=== PATIENT | male | born 1960 | race Caucasian/White ===

== ENCOUNTER → 2023-11-23 12:21 | Outpatient (REF) | payer OTHER, SELFPAY | LOC: REG 12:21 | PROVIDERS: ATTENDING PHYSICIAN Student in an Organized Health Care Education/Training Program | DX: M54.50 Low back pain, unspecified (principal) | CPT/HCPCS: 72110 ==

== ENCOUNTER 2024-01-27 14:41 | Outpatient (RCR) | payer OTHER, SELFPAY | END 2024-01-27 23:59 | disposition home or self-care (01) | LOC: RPT 14:41 | PROVIDERS: ATTENDING PHYSICIAN Pain Medicine Interventional Pain Medicine | DX: M54.16 Radiculopathy, lumbar region (principal); Z73.6 Limitation of activities due to disability | CPT/HCPCS: 97110; 97112; 97162 ==

== ENCOUNTER 2024-02-10 15:33 | Outpatient (RCR) | payer BC, SELFPAY | END 2024-02-10 23:59 | disposition home or self-care (01) | LOC: RPT 15:33 | PROVIDERS: ATTENDING PHYSICIAN Pain Medicine Interventional Pain Medicine | DX: M54.16 Radiculopathy, lumbar region (principal); Z73.6 Limitation of activities due to disability | CPT/HCPCS: 97110 ==

== ENCOUNTER → 2024-07-05 16:20 | Outpatient (REF) | payer BC, SELFPAY ==
[2024-07-05 17:20] LABS: Blood Urea Nitrogen 24 mg/dl (9-20); Calcium 9.3 mg/dl (8.4-10.2); Carbon Dioxide 21 mmol/L (22-30); Chloride 104 mmol/L (98-107); Glucose 99 mg/dl (70-99); Potassium 4.7 mmol/L (3.5-5.1); Sodium 136 mmol/L (135-145); eGFR > 60.00
== END ==
LOC: REG 16:20
PROVIDERS: ATTENDING PHYSICIAN Student in an Organized Health Care Education/Training Program
DX: Z13.228 Encounter for screening for other metabolic disorders (principal)
CPT/HCPCS: 36415; 80048

== ENCOUNTER → 2024-07-07 16:54 | Outpatient (REF) | payer BC, SELFPAY | LOC: RAD 16:54 | PROVIDERS: ATTENDING PHYSICIAN Student in an Organized Health Care Education/Training Program | DX: R93.89 Abnormal findings on diagnostic imaging of other specified body structures (principal) | CPT/HCPCS: 71260; Q9967 ==

== ENCOUNTER → 2024-07-20 15:36 | Outpatient (REF) | payer BC, SELFPAY | LOC: HWRCS 15:36 | PROVIDERS: ATTENDING PHYSICIAN Nuclear Medicine Nuclear Cardiology; FAMILY PHYSICIAN Nurse Practitioner Adult Health | DX: I25.10 Atherosclerotic heart disease of native coronary artery without angina pectoris (principal) | CPT/HCPCS: 93306 ==

== ENCOUNTER 2024-07-24 06:34 | Day surgery (SDC) | payer BC, SELFPAY ==
[2024-07-12 08:58] LABS: Hematocrit 41.2 % (39.0-52.0); Hemoglobin 13.8 g/dL (13.0-18.0); Mean Corp Hgb Conc. 33.5 g/dL (33.0-37.0); Mean Corpuscular Hgb 30.6 pg (27.0-31.0); Mean Corpuscular Volume 91.4 fL (80.0-94.0); Platelet Count 377 10^3/uL (130-400); Red Blood Cell Count 4.51 10^6/uL (4.70-6.10); Red Cell Dist. Width 12.2 % (11.5-14.5); White Blood Cell Count 8.9 10^3/uL (4.8-10.8)
[2024-07-12 09:27] LABS: INR 0.94; PT 13.1 Sec (11.4-14.6)
[2024-07-12 09:28] LABS: APTT 32.1 Sec (23.4-35.0)
[2024-07-12 14:16] VITALS: BMI 31.3
[2024-07-24] VITALS (9 sets, daily range): BP systolic 119–143; BP diastolic 58–67; BMI 31.2
== END 2024-07-24 11:30 | disposition home or self-care (01) ==
LOC: GI 06:34
PROVIDERS: ATTENDING PHYSICIAN Internal Medicine Critical Care Medicine; FAMILY PHYSICIAN Student in an Organized Health Care Education/Training Program
DX: C34.31 Malignant neoplasm of lower lobe, right bronchus or lung (principal); R05.3 Chronic cough; R91.8 Other nonspecific abnormal finding of lung field; R59.0 Localized enlarged lymph nodes
CPT/HCPCS: 31629; 31628; 31624; 31623; 31654; 31627; 31652; 88173; 88305; 36415; 71045; 76000; 81459; 85027; 85610; 85730; 87070; 87102; 87116; 87205; 88112; 88333; 88341; 88342; 94640; C1887

== ENCOUNTER → 2024-08-07 08:29 | Outpatient (REF) | payer BC, SELFPAY | LOC: PET 08:29 | PROVIDERS: ATTENDING PHYSICIAN Internal Medicine Critical Care Medicine | DX: R91.8 Other nonspecific abnormal finding of lung field (principal) | CPT/HCPCS: 78815; A9552 ==

== ENCOUNTER → 2024-08-15 08:33 | Outpatient (REF) | payer BC, SELFPAY ==
[2024-08-15 09:05] VITALS: BP 133/66; BP_SYST 84
[2024-08-15] MEDS: VANCOCIN 530 MG IV (09:29)
[2024-08-15 09:39] VITALS: BMI 32.0
[2024-08-15 09:56] LABS: Hematocrit 43.1 % (39.0-52.0); Hemoglobin 14.5 g/dL (13.0-18.0); Mean Corp Hgb Conc. 33.6 g/dL (33.0-37.0); Mean Platelet Volume 8.8 fL (7.4-10.4); Platelet Count 303 10^3/uL (130-400); Red Blood Cell Count 4.84 10^6/uL (4.70-6.10); Red Cell Dist. Width 12.3 % (11.5-14.5); White Blood Cell Count 8.3 10^3/uL (4.8-10.8)
[2024-08-15 10:48] LABS: ALT (SGPT) 29 U/L (0-50); AST (SGOT) 33 U/L (17-59); Albumin 3.9 g/dl (3.5-5.0); Alkaline Phosphatase 127 U/L (38-126); Blood Urea Nitrogen 14 mg/dl (9-20); Calcium 9.6 mg/dl (8.4-10.2); Carbon Dioxide 26 mmol/L (22-30); Chloride 104 mmol/L (98-107); Estimated Creatinine Clearance > 125 ml/min; Glucose 111 mg/dl (70-99); Potassium 4.7 mmol/L (3.5-5.1); Sodium 139 mmol/L (135-145); Total Bilirubin 0.7 mg/dl (0.2-1.3); Total Protein 6.6 g/dl (6.3-8.2); eGFR > 60.00
[2024-08-15 10:50] VITALS: BP 125/90
[2024-08-15 11:15] LABS: % Basophils 0.7 % (0-2); % Eosinophils 4.8 % (0-6); % Immature Granulocytes 0.4 % (0-0.5); % Lymphocytes 21.7 % (20.5-51.1); % Monocytes 7.2 % (1.7-9.3); % Neutrophils 65.2 % (42.2-75.2); Absolute Basophils 0.1 10^3/uL (0-0.2); Absolute Eosinophils 0.4 10^3/uL (0-0.7); Absolute Lymphocytes 1.8 10^3/uL (1.2-3.4); Absolute Monocytes 0.6 10^3/uL (0.1-0.6); Absolute Neutrophils 5.4 10^3/uL (1.4-6.5); Nucleated Red Blood Cells % 0 % (-)
== END ==
LOC: RADI 08:33
PROVIDERS: ATTENDING PHYSICIAN Internal Medicine Hematology & Oncology; FAMILY PHYSICIAN Student in an Organized Health Care Education/Training Program
DX: C34.31 Malignant neoplasm of lower lobe, right bronchus or lung (principal)
CPT/HCPCS: 36415; 36561; 76937; 77001; 80053; 85025; 99152; 99153; C1788

== ENCOUNTER → 2024-08-17 17:51 | Outpatient (REF) | payer BC, SELFPAY | LOC: MRI 17:51 | PROVIDERS: ATTENDING PHYSICIAN Internal Medicine Hematology & Oncology; FAMILY PHYSICIAN Student in an Organized Health Care Education/Training Program | DX: C34.31 Malignant neoplasm of lower lobe, right bronchus or lung (principal) | CPT/HCPCS: 70553; 76014; A9575 ==

== ENCOUNTER → 2024-08-24 11:36 | Outpatient (REF) | payer BC, SELFPAY ==
[2024-08-24 12:39] LABS: Hemoglobin 13.9 g/dL (13.0-18.0); Mean Corp Hgb Conc. 33.1 g/dL (33.0-37.0); Mean Corpuscular Hgb 29.8 pg (27.0-31.0); Mean Corpuscular Volume 90.1 fL (80.0-94.0); Platelet Count 186 10^3/uL (130-400); Red Blood Cell Count 4.66 10^6/uL (4.70-6.10); White Blood Cell Count 13.6 10^3/uL (4.8-10.8)
[2024-08-24 13:09] LABS: % Basophils 0.1 % (0-2); % Eosinophils 2.1 % (0-6); % Immature Granulocytes 0.1 % (0-0.5); % Lymphocytes 14.5 % (20.5-51.1); % Monocytes 8.9 % (1.7-9.3); % Neutrophils 74.3 % (42.2-75.2); Absolute Eosinophils 0.3 10^3/uL (0-0.7); Absolute Monocytes 1.2 10^3/uL (0.1-0.6); Absolute Neutrophils 10.1 10^3/uL (1.4-6.5); Nucleated Red Blood Cells % 0 % (-)
== END ==
LOC: REG 11:36
PROVIDERS: ATTENDING PHYSICIAN Internal Medicine Hematology & Oncology
DX: C34.31 Malignant neoplasm of lower lobe, right bronchus or lung (principal)
CPT/HCPCS: 36415; 85025

== ENCOUNTER → 2024-09-14 15:10 | Outpatient (REF) | payer BC, SELFPAY ==
[2024-09-14 16:06] LABS: % Basophils 0.7 % (0-2); % Immature Granulocytes 0.3 % (0-0.5); % Lymphocytes 10.4 % (20.5-51.1); % Monocytes 3.4 % (1.7-9.3); % Neutrophils 85.2 % (42.2-75.2); Absolute Basophils 0.1 10^3/uL (0-0.2); Absolute Lymphocytes 1.1 10^3/uL (1.2-3.4); Absolute Monocytes 0.4 10^3/uL (0.1-0.6); Absolute Neutrophils 8.7 10^3/uL (1.4-6.5); Hemoglobin 13.4 g/dL (13.0-18.0); Mean Corp Hgb Conc. 33.5 g/dL (33.0-37.0); Mean Corpuscular Hgb 29.8 pg (27.0-31.0); Mean Corpuscular Volume 88.9 fL (80.0-94.0); Mean Platelet Volume 9.2 fL (7.4-10.4); Nucleated Red Blood Cells % 0 % (-); Platelet Count 509 10^3/uL (130-400); Red Cell Dist. Width 13.6 % (11.5-14.5); White Blood Cell Count 10.2 10^3/uL (4.8-10.8)
[2024-09-14 16:19] LABS: ALT (SGPT) 39 U/L (0-50); AST (SGOT) 36 U/L (17-59); Albumin 4.4 g/dl (3.5-5.0); Alkaline Phosphatase 141 U/L (38-126); Blood Urea Nitrogen 17 mg/dl (9-20); Calcium 9.7 mg/dl (8.4-10.2); Carbon Dioxide 24 mmol/L (22-30); Chloride 106 mmol/L (98-107); Glucose 148 mg/dl (70-99); Potassium 4.8 mmol/L (3.5-5.1); Sodium 141 mmol/L (135-145); Total Bilirubin 0.4 mg/dl (0.2-1.3); eGFR > 60.00
== END ==
LOC: REG 15:10
PROVIDERS: ATTENDING PHYSICIAN Internal Medicine Hematology & Oncology
DX: C34.31 Malignant neoplasm of lower lobe, right bronchus or lung (principal)
CPT/HCPCS: 36415; 80053; 85025

== ENCOUNTER → 2024-09-26 11:00 | Outpatient (REF) | payer BC, SELFPAY ==
[2024-09-26 12:08] LABS: % Basophils 0.5 % (0-2); % Eosinophils 1.3 % (0-6); % Immature Granulocytes 1.1 % (0-0.5); % Lymphocytes 10.7 % (20.5-51.1); % Monocytes 8.3 % (1.7-9.3); % Neutrophils 78.1 % (42.2-75.2); Absolute Basophils 0.1 10^3/uL (0-0.2); Absolute Eosinophils 0.3 10^3/uL (0-0.7); Absolute Immature Granulocytes 0.2 10^3/uL (0-0.05); Absolute Lymphocytes 2.1 10^3/uL (1.2-3.4); Absolute Monocytes 1.7 10^3/uL (0.1-0.6); Absolute Neutrophils 15.5 10^3/uL (1.4-6.5); Hematocrit 41.2 % (39.0-52.0); Hemoglobin 13.3 g/dL (13.0-18.0); Mean Corp Hgb Conc. 32.3 g/dL (33.0-37.0); Mean Corpuscular Hgb 29.3 pg (27.0-31.0); Mean Corpuscular Volume 90.7 fL (80.0-94.0); Mean Platelet Volume 9.4 fL (7.4-10.4); Nucleated Red Blood Cells % 0 % (-); Platelet Count 149 10^3/uL (130-400); Red Blood Cell Count 4.54 10^6/uL (4.70-6.10); Red Cell Dist. Width 14.6 % (11.5-14.5); White Blood Cell Count 19.8 10^3/uL (4.8-10.8)
[2024-09-26 12:28] LABS: Urine Albumin Negative (Neg - Trace); Urine Bilirubin Negative (Negative); Urine Character Clear (Clear); Urine Color Yellow; Urine Glucose Negative (Negative); Urine Ketone Negative (Negative); Urine Leukocyte Negative (Negative); Urine Nitrite Negative (Negative); Urine Occult Blood 1+ (Negative); Urine Specific Gravity 1.015 (<1.030); Urine Urobilinogen Negative (Neg - 1+)
[2024-09-26 12:36] LABS: ALT (SGPT) 38 U/L (0-50); AST (SGOT) 27 U/L (17-59); Albumin 4.2 g/dl (3.5-5.0); Alkaline Phosphatase 172 U/L (38-126); Blood Urea Nitrogen 13 mg/dl (9-20); Calcium 9.3 mg/dl (8.4-10.2); Carbon Dioxide 26 mmol/L (22-30); Chloride 103 mmol/L (98-107); Glucose 102 mg/dl (70-99); Potassium 4.7 mmol/L (3.5-5.1); Sodium 137 mmol/L (135-145); Total Protein 6.6 g/dl (6.3-8.2); eGFR > 60.00
[2024-09-26 14:00] LABS: Urine Mucus Few; Urine Squamous Cell 0-2 /LPF (Few)
[2024-09-26 14:01] LABS: Urine Red Blood Cell 0-2 /HPF (0-2); Urine White Cell 0-2 /HPF (0-5)
== END ==
LOC: REG 11:00
PROVIDERS: ATTENDING PHYSICIAN Nurse Practitioner Primary Care; FAMILY PHYSICIAN Student in an Organized Health Care Education/Training Program
DX: C34.31 Malignant neoplasm of lower lobe, right bronchus or lung (principal)
CPT/HCPCS: 36415; 71046; 80053; 81003; 81015; 85025; 87086

== ENCOUNTER → 2024-10-05 06:38 | Outpatient (REF) | payer BC, SELFPAY ==
[2024-10-05 07:14] LABS: % Basophils 1.3 % (0-2); % Eosinophils 3.2 % (0-6); % Immature Granulocytes 0.9 % (0-0.5); % Lymphocytes 20.2 % (20.5-51.1); % Monocytes 8.1 % (1.7-9.3); % Neutrophils 66.3 % (42.2-75.2); Absolute Basophils 0.1 10^3/uL (0-0.2); Absolute Eosinophils 0.3 10^3/uL (0-0.7); Absolute Immature Granulocytes 0.1 10^3/uL (0-0.05); Absolute Lymphocytes 1.6 10^3/uL (1.2-3.4); Absolute Monocytes 0.6 10^3/uL (0.1-0.6); Absolute Neutrophils 5.2 10^3/uL (1.4-6.5); Hematocrit 38.9 % (39.0-52.0); Hemoglobin 12.9 g/dL (13.0-18.0); Mean Corp Hgb Conc. 33.2 g/dL (33.0-37.0); Mean Corpuscular Hgb 29.7 pg (27.0-31.0); Mean Corpuscular Volume 89.6 fL (80.0-94.0); Mean Platelet Volume 8.7 fL (7.4-10.4); Nucleated Red Blood Cells % 0 % (-); Platelet Count 386 10^3/uL (130-400); Red Blood Cell Count 4.34 10^6/uL (4.70-6.10); Red Cell Dist. Width 14.6 % (11.5-14.5); White Blood Cell Count 7.9 10^3/uL (4.8-10.8)
[2024-10-05 07:55] LABS: Free T4 0.93 ng/dl (0.78-2.19)
[2024-10-05 07:56] LABS: ALT (SGPT) 25 U/L (0-50); AST (SGOT) 25 U/L (17-59); Albumin 3.9 g/dl (3.5-5.0); Alkaline Phosphatase 122 U/L (38-126); Blood Urea Nitrogen 10 mg/dl (9-20); Calcium 9.1 mg/dl (8.4-10.2); Carbon Dioxide 23 mmol/L (22-30); Chloride 111 mmol/L (98-107); Glucose 123 mg/dl (70-99); Potassium 4.3 mmol/L (3.5-5.1); Sodium 143 mmol/L (135-145); Total Bilirubin 0.3 mg/dl (0.2-1.3); Total Protein 6.5 g/dl (6.3-8.2); eGFR > 60.00
[2024-10-05 08:09] LABS: TSH 1.15 uIU/ml (0.47-4.68)
[2024-10-07 02:40] LABS: Total T3 (Sendout) 115 ng/dL (80-200)
== END ==
LOC: REG 06:38
PROVIDERS: ATTENDING PHYSICIAN Internal Medicine Hematology & Oncology; FAMILY PHYSICIAN Student in an Organized Health Care Education/Training Program
DX: C34.31 Malignant neoplasm of lower lobe, right bronchus or lung (principal)
CPT/HCPCS: 36415; 80053; 84439; 84443; 84480; 85025

== ENCOUNTER → 2024-10-26 06:35 | Outpatient (REF) | payer BC, SELFPAY ==
[2024-10-26 07:37] LABS: % Basophils 0.9 % (0-2); % Eosinophils 3.2 % (0-6); % Immature Granulocytes 1.4 % (0-0.5); % Neutrophils 69.5 % (42.2-75.2); Absolute Basophils 0.1 10^3/uL (0-0.2); Absolute Eosinophils 0.3 10^3/uL (0-0.7); Absolute Immature Granulocytes 0.1 10^3/uL (0-0.05); Absolute Lymphocytes 1.6 10^3/uL (1.2-3.4); Absolute Monocytes 0.8 10^3/uL (0.1-0.6); Absolute Neutrophils 6.6 10^3/uL (1.4-6.5); Hemoglobin 13.2 g/dL (13.0-18.0); Mean Corpuscular Hgb 29.7 pg (27.0-31.0); Mean Corpuscular Volume 89.9 fL (80.0-94.0); Mean Platelet Volume 9.2 fL (7.4-10.4); Nucleated Red Blood Cells % 0 % (-); Platelet Count 289 10^3/uL (130-400); Red Blood Cell Count 4.45 10^6/uL (4.70-6.10); Red Cell Dist. Width 16.1 % (11.5-14.5); White Blood Cell Count 9.6 10^3/uL (4.8-10.8)
[2024-10-26 08:00] LABS: ALT (SGPT) 26 U/L (0-50); AST (SGOT) 28 U/L (17-59); Albumin 4.1 g/dl (3.5-5.0); Alkaline Phosphatase 127 U/L (38-126); Blood Urea Nitrogen 13 mg/dl (9-20); Calcium 9.4 mg/dl (8.4-10.2); Carbon Dioxide 30 mmol/L (22-30); Chloride 106 mmol/L (98-107); Glucose 120 mg/dl (70-99); Potassium 4.8 mmol/L (3.5-5.1); Sodium 142 mmol/L (135-145); Total Bilirubin 0.5 mg/dl (0.2-1.3); Total Protein 6.6 g/dl (6.3-8.2); eGFR > 60.00
[2024-10-26 08:27] LABS: TSH Reflex To Free T4 0.07 uIU/ml (0.47-4.68)
[2024-10-26 08:57] LABS: Free T4 1.81 ng/dl (0.78-2.19)
== END ==
LOC: REG 06:35
PROVIDERS: ATTENDING PHYSICIAN Nurse Practitioner Adult Health; FAMILY PHYSICIAN Student in an Organized Health Care Education/Training Program
DX: C34.31 Malignant neoplasm of lower lobe, right bronchus or lung (principal)
CPT/HCPCS: 36415; 80053; 84439; 84443; 85025

== ENCOUNTER → 2024-11-15 12:27 | Outpatient (REF) | payer BC, MEDICARE, SELFPAY | LOC: PET 12:27 | PROVIDERS: ATTENDING PHYSICIAN Nurse Practitioner Adult Health | DX: C34.31 Malignant neoplasm of lower lobe, right bronchus or lung (principal) | CPT/HCPCS: 78815; A9552 ==

== ENCOUNTER → 2024-11-16 15:31 | Outpatient (REF) | payer MEDICARE, OTHER, SELFPAY ==
[2024-11-16 16:51] LABS: Hematocrit 36.8 % (39.0-52.0); Hemoglobin 12.3 g/dL (13.0-18.0); Mean Corp Hgb Conc. 33.4 g/dL (33.0-37.0); Mean Corpuscular Volume 91.5 fL (80.0-94.0); Nucleated Red Blood Cells % 0 % (-); Platelet Count 258 10^3/uL (130-400); Red Cell Dist. Width 16.5 % (11.5-14.5)
[2024-11-16 17:14] LABS: ALT (SGPT) 50 U/L (0-50); AST (SGOT) 45 U/L (17-59); Albumin 4.3 g/dl (3.5-5.0); Alkaline Phosphatase 121 U/L (38-126); Blood Urea Nitrogen 18 mg/dl (9-20); Calcium 8.9 mg/dl (8.4-10.2); Carbon Dioxide 27 mmol/L (22-30); Chloride 105 mmol/L (98-107); Glucose 98 mg/dl (70-99); Potassium 4.7 mmol/L (3.5-5.1); Sodium 139 mmol/L (135-145); Total Protein 6.5 g/dl (6.3-8.2); eGFR > 60.00
[2024-11-16 17:44] LABS: TSH < 0.02 uIU/ml (0.47-4.68)
[2024-11-19 17:44] LABS: Total T3 (Sendout) 213 ng/dL (80-200)
== END ==
LOC: REG 15:31
PROVIDERS: ATTENDING PHYSICIAN Internal Medicine Hematology & Oncology; FAMILY PHYSICIAN Student in an Organized Health Care Education/Training Program
DX: C34.31 Malignant neoplasm of lower lobe, right bronchus or lung (principal); Z79.899 Other long term (current) drug therapy
CPT/HCPCS: 36415; 80053; 84439; 84443; 84480; 85025

== ENCOUNTER → 2024-11-22 07:36 | Outpatient (REF) | payer MEDICARE, OTHER, SELFPAY | LOC: RCS 07:36 | PROVIDERS: ATTENDING PHYSICIAN Internal Medicine Cardiovascular Disease; FAMILY PHYSICIAN Student in an Organized Health Care Education/Training Program | DX: I25.10 Atherosclerotic heart disease of native coronary artery without angina pectoris (principal) | CPT/HCPCS: 78452; 93017; A9500 ==

== ENCOUNTER → 2024-12-05 10:03 | Outpatient (REF) | payer MEDICARE, OTHER, SELFPAY ==
[2024-12-05 11:48] LABS: TSH 0.18 uIU/ml (0.47-4.68)
[2024-12-07 00:45] LABS: Total T3 (Sendout) 96 ng/dL (80-200)
== END ==
LOC: REG 10:03
PROVIDERS: ATTENDING PHYSICIAN Internal Medicine Hematology & Oncology; FAMILY PHYSICIAN Student in an Organized Health Care Education/Training Program
DX: R53.82 Chronic fatigue, unspecified (principal)
CPT/HCPCS: 36415; 84439; 84443; 84480

== ENCOUNTER 2024-12-18 04:56 | Inpatient (IN) | payer MEDICARE, OTHER, SELFPAY ==
[2024-12-05 08:50] VITALS: BMI 31.4
[2024-12-05 09:02] LABS: Hematocrit 40.7 % (39.0-52.0); Hemoglobin 14.0 g/dL (13.0-18.0); Mean Corp Hgb Conc. 34.4 g/dL (33.0-37.0); Mean Corpuscular Volume 91.9 fL (80.0-94.0); Nucleated Red Blood Cells % 0 % (-); Platelet Count 200 10^3/uL (130-400); Red Cell Dist. Width 14.6 % (11.5-14.5)
[2024-12-05 09:02] LABS: Urine Character Clear (Clear)
[2024-12-05 09:15] LABS: INR 0.96; PT 13.3 Sec (11.4-14.6)
[2024-12-05 09:38] LABS: ALT (SGPT) 24 U/L (0-50); AST (SGOT) 29 U/L (17-59); Albumin 4.2 g/dl (3.5-5.0); Alkaline Phosphatase 102 U/L (38-126); Blood Urea Nitrogen 12 mg/dl (9-20); Calcium 9.3 mg/dl (8.4-10.2); Carbon Dioxide 25 mmol/L (22-30); Chloride 108 mmol/L (98-107); Estimated Creatinine Clearance 110 ml/min; Glucose 130 mg/dl (70-99); Potassium 4.0 mmol/L (3.5-5.1); Sodium 140 mmol/L (135-145); Total Protein 6.4 g/dl (6.3-8.2); eGFR > 60.00
[2024-12-05 09:43] LABS: Urine Red Blood Cell 0-2 /HPF (0-2); Urine White Cell 0-2 /HPF (0-5)
--- NOTE | 2024-12-05 10:03 | CM ---
spoke to pt in PAT's. we disucssed preop Lung surgery including lifting and driving restictions, he is prev indep, lives with his in a 1 story home with 1 step to enter. he denies any dme's. he is agreeable to a f/u appt with the ct
transitional care nurse after dc. he has the lung surgery book, soap and instructions. plan is for RLL lobectomy 12/18. cm role explained and all questions answered.
[2024-12-05 10:16] LABS: Glycohemoglobin (HgbA1c) 5.6 % (4.0-5.6)
[2024-12-18] VITALS (15 sets, daily range): BP systolic 106–156; BP diastolic 53–97; BMI 31.4
--- NOTE | 2024-12-18 05:46 | PTCARENOTE ---
Patient arive to CVICU pre op questions and admission data collected and prep completed. CHG bath done, Last food or drink 1900 12/17/2004. Labs drawn, prepped and cliped.
--- NOTE | 2024-12-18 06:18 | W.CVOR.SURPR ---
CVOR Surgeon Immed Pre Op
-
I have examined this patient prior to performance of the scheduled procedure.
The patient's condition is unchanged from the time of the dictated/written History and
Physical and the patient is able to undergo the scheduled procedure.
RATS RLL + LN Dissection
[2024-12-18] MEDS: VANCOCIN 530 MG IV (06:53)
[2024-12-18 07:26] LABS: Urine Character Clear (Clear)
[2024-12-18] MEDS: AZACTAM 2000 MG IV ×2 (07:35→12:48)
[2024-12-18 07:44] LABS: Urine Red Blood Cell 0-2 /HPF (0-2); Urine White Cell 0-2 /HPF (0-5)
--- NOTE | 2024-12-18 08:11 | CM ---
Reviewed chart. Mr. Rodriguez is in the operating room today. Prior to admission he resides with his spouse in a one story home with one step to enter. Prior to admission he was independent with ambulation and adls. He does not have any DME in the
home. He has a prescription plan. Medical work-up in progress. The discharge plan is to return home with his spouse and a home visit by the Transitional Care Nurse when medically stable.
--- NOTE | 2024-12-18 10:53 | W.PN.CT.SURG ---
CT Surgery Operative Note
-
THORACIC SURGERY OPERATIVE REPORT
Preoperative Diagnosis: Right lower lobe pulmonary adenocarcinoma, status post neoadjuvant chemoimmunotherapy
Postoperative Diagnosis: Same
Procedure(s) Performed:
1. Robotic assisted thoracic surgery [R ATS]
2. Right lower lobectomy
3. Radical lymph node dissection
4. Intercostal nerve block interspaces 4, 5, 6, 7, 8
Date of Surgery: 12/18/2024
Comorbidities:
1. Pulmonary adenocarcinoma status post neoadjuvant chemoimmunotherapy
2. Hyperlipidemia
3. History of myocardial infarction
4. Hypertension
5. Tobacco abuse
6. EtOH usage
Attending Surgeon: Rogelio Hastings MD, MS
Assistants: Mara Ryan PA-C (present and necessary to first cook, exchanging robotic instruments, retraction, suction, exposure, suture management, and wound closure under my direction)
Anesthesiology: Davonte Arguelles MD and Nino Ellis CRNA
Scrub and Circulating RNs: Lane Aleman RN, Christine Nazario RN
Anesthesia: Dual Lumen GETA
EBL: 150 cc
Products: None
Indication(s) for Procedures: This is a 64-year-old male who recently had pneumonia underwent a CT scan which demonstrated a 4 cm right lower lobe mass. He underwent biopsy which came back as primary pulmonary adenocarcinoma. Given the size of the
mass he was stage II [T2b, N0, presumed M0] and was started on neoadjuvant chemoimmunotherapy. He seemed to have a good response with decrease in size of the mass as well as FDG avidity. He was referred to me for consideration of resection post
neoadjuvant therapy.
Findings: There were no obvious intrathoracic metachronous lesions. The right lower lobe mass was located in the lateral posterior aspect in the superior segment of the right lower lobe. There was some adhesions between the fissures between the
right lower lobe and right upper lobe. His hilum was highly vascular as were his lymph nodes. Once the inferior pulmonary vein was dissected, and lymph nodes were harvested, I then dove into towards the hilum identifying the main basilar pulmonary
artery branch. I then the pulmonary tissue using a green load stapler towards the posterior aspect and use a vessel sealer along the anterior aspect between the right middle and right lower lobes. Small branches of pulmonary veins were
divided with the vessel sealer. The major pulmonary arterial branches feeding into the right lower lobe were identified and then divided using white load staplers. The vein leading to the right lower lobe was also divided using a white load
stapler. At this point I used the vessel sealer to dissect between the lung parenchyma tethering the right middle lobe and right lower lobes together. This freed up the bronchus to the right lower lobe. It was clamped and the test inflation was
performed demonstrating an unobstructed flow to the right upper and right middle lobes. It was then divided. Leak test was then performed by flooding the field and instillation of the remaining lobes. There is no obvious bubbling. Of note, the
tissue that was adherent between the right lower lobe mass the right upper lobe was divided using a vessel sealer with a margin.
Specimen(s):
Station 10, x 2 nodes
Station 11, x 3 nodes
Station 2/4, x 4 nodes
Station 7, x 4 nodes
Station 12 x 1
Right lower lobe lobe
Description of Procedure: The patient was taken to the operating room. Induction via general anesthesia with endotracheal intubation was performed and peripheral venous access and arterial monitoring were inserted. Their identity and procedure to be
performed were verified and they were positioned with the right side up on the operating table. The patient was then prepped and draped in a sterile fashion. A preoperative time-out was performed with all members of the team present. A Veress
needle was used to insufflate the chest after isolating the lung. An 8 mm port was placed in the midaxillary line at approximately the eighth intercostal space and confirmed to be intrathoracic without significant pulmonary injury. The chest was
surveyed for any evidence of metastatic disease. Patient tolerate insufflation without complication. 2 additional 12 mm trocars were placed on either side under camera guidance and a third 8 mm trocar was placed along the back. A 12 mm floor covering printer assistant
port was placed in the 11th intercostal space above the insertion of the diaphragm. An intercostal nerve block was performed at intercostal spaces 5 through 8.
The thoracic cavity was inspected for evidence of metastatic disease. None was observed. We started with mobilization of the inferior pulmonary ligament. We worked our way clockwise dissecting out the hilum and harvest any lymph nodes identified.
The pulmonary arteries and veins leading to the right lower lobe were identified and skeletonized. A vessel sealer was used to divide any minor venous branches. The major arterial and venous branches to the right lower lobe were sequentially
divided with a white load stapler. I clamped the bronchus and performed a test inflation which demonstrated unobstructed flow into the remaining right upper and right middle lobe. The specimen was displaced toward the apex while a chest tube was
inserted and placed laterally towards the apex. A bubble test was performed to identify any air leaks. CoSeal was used to reinforce the staple lines and hilum. The right lower was then placed into a specimen bag and extracted from the chest cavity.
After confirming hemostasis, the lung was fully inflated and all ports were removed. Incisions were closed in 3 layers including the fascia, dermal, and epidermis. Additional local anesthesia was injected into all incision sites. The skin wound
was cleansed and sealed with Dermabond glue.
All instrument, sponge, and needle counts were confirmed to be correct x 2 at the end of the operation. The patient was transferred to the cardiac intensive care unit extubated in critical but stable condition.
I, Dr. Rogelio Hastings, was present, scrubbed for, and performed all critical elements of this procedure.
Rogelio Hastings MD, MS
Cardiothoracic Surgeon
[facility]
This operative dictation was created using the youmag dictation system. Please excuse any grammatical, typographical, or 'sound alike' errors
[2024-12-18] MEDS: DILAUDID 0.5 MG IV (11:27)
--- NOTE | 2024-12-18 11:35 | CON.INTV ---
Consultation
Consultation Request
Date/Time Consultation Requested: 12/18/2024
Date/Time Consultation Performed: 12/18/2024
Reason for Consultation: Lung carcinoma
Medical History
-
Chief Complaint: Lung cancer
History of Present Illness:
Patient is a very pleasant 64-year-old gentleman with longstanding history of smoking who was noticed to have a right lower lobe mass earlier this year. In 07/2024 patient had a robotic bronchoscopy and EBUS performed and tissue diagnosis was
consistent with adenocarcinoma. Patient was diagnosed with stage II disease with plan for neoadjuvant chemotherapy. Patient has recently completed chemotherapy and is currently on Keytruda. He was subsequently evaluated by CT surgery service, and
was felt to be a good candidate for surgical resection. Patient had a PET scan performed a month ago which showed good response to the initial therapy and absence of extrathoracic disease. Patient today was brought to the OR and had right lower
lobectomy in addition to radical lymph node dissection. Postprocedure, patient was admitted to cardiovascular ICU and peoplesoft taleo manager consultation was requested for further input.
Past medical history. Hypertension, hyperlipidemia, coronary artery disease with history of PCI in 2012, history of alcoholism, longstanding history of smoking. Adenocarcinoma lung, diagnosed in 07/2024.
Surgical history. Cardiac catheterization, cataract surgery, shoulder surgery.
Family history. Father had asbestos related malignancy. History of head and neck cancer in a sibling.
Social history. [id number] smoking history, quit in 2012. Reported exposure to asbestos in the past. Currently drinks about 6 beers daily.
Allergies / Home Medications
Allergies
Allergy/AdvReac Type Severity Reaction Status Date / Time
Penicillins Allergy Rash Verified 12/01/24 15:10
Home Medications
�Medication �Instructions �Recorded �Confirmed �Last Taken �Type
aspirin 81 mg tablet,delayed 81 mg PO DAILY ##0 04/25/13 12/18/24 1 Day Ago Rx
release ~12/17/24
81
lisinopril 2.5 mg tablet 2.5 mg PO DAILY ##30 04/25/13 12/18/24 12/15/24 Rx
2.5 MG
rosuvastatin 40 mg tablet (Crestor) 40 mg PO DAILY 12/18/15 12/18/24 12/17/24 History
40
famotidine 10 mg tablet 10 mg PO DAILY 07/19/24 12/18/24 1 Day Ago History
~12/17/24
10 MG
metoprolol succinate 25 mg 25 mg PO DAILY 07/19/24 12/18/24 12/17/24 History
tablet,extended release 24 hr 25 MG
Keytruda 1 dose IV Q3W 12/01/24 12/18/24 12/01/24 History
1
folic acid 1 mg tablet 1 mg PO DAILY 12/01/24 12/18/24 1 Day Ago History
~12/17/24
1
Aleve 1 tab PO PRN PRN PAIN 12/18/24 12/18/24 12/09/24 History
220 mg
Review of Systems
-
Hematologic/Lymphatic: Other (Other than expected postop pain, all 14 systems reviewed and negative except as stated above in the history of present illness.)
Vitals / Labs / Diagnostic Testing
Vital Signs
Temp BP Pulse Ox
97.9 F 143/66 96
12/18/24 11:12 12/18/24 11:15 12/18/24 11:15
Lab Data
12/05/24 08:45
12/18/24 11:05
Diagnostic Testing:
Physical Exam
-
HEENT: Normocephalic
Cardiovascular: S1/S2
Respiratory: Clear and Other (Chest tube in place, serosanguineous drainage. Tidaling noted.)
GI: Soft
Neurology: Awake and Alert
Skin: Warm
General: Comfortable
Assessment
-
Patient with diagnosis of right lower lobe pulmonary adenocarcinoma, s/p RATS, right lower lobectomy and radical lymph node dissection with intercostal nerve block, POD # 0
Patient is off all pressors. Hemodynamically stable with a MAP of 82. Saturating 97% on 2 L. Chest tube right-sided in place with serosanguineous drainage.
Continue to wean oxygen as tolerated
Chest x-ray in the morning
Pain control
CXR with no obvious opacities/infiltrates, Chest tube in place
Maintain supplement oxygen as needed
Prior PFTs reviewed
Can add nebulizers if needed
Aspiration precautions
Encouraged incentive spirometry, OOB/ambulation/early mobility
Advance diet as tolerated per surgery service
Monitor critical I/O's
Post-op labs pending
Can transfuse if indicated for Hb <7, plt <50 in surgical patients
DVT prophylaxis including SCDs
Other medical diagnoses:
- Stage II RLL Adenocarcinoma. s/p Chemotherapy, currently on Keytruda, s/p Surgical resection today with LN dissection. Resume out patient follow up with Oncology and Pulmonary service
- h/o Smoking. 80 pack years, Quiet in 2012. PFT 07/2024. Normal spirometry with mildly reduced diffusion capacity, normal when corrected for alveolar volume. No indication for inhaler therapy
- Alcoholism, drink about 6 beers daily. Recommend addition of Thiamine, monitor for s/s of alcohol withdrawl.
- HTN, HLD
- CAD, h/o PCI of RCA in 2012.
Critical Care time 65 mins -- The patient is admitted for acute critical illness for the treatment of vital organ failure and/or prevention of further life-threatening conditions. Total care includes time spent in review of history, physical exam,
medications, hemodynamic/ventilator parameters, laboratory data, imaging and discussion with house staff, pharmacy, respiratory therapy, sales strategy manager, and nursing.
Data:
CXR 12/2024: Right sided chest tube, mild atelectasis.
PET-CT 11/2024: Positive response to treatment. Improving size and FDG uptake of the hypermetabolic lung cancer in the superior segment of the right lower lobe compared to the previous PET/CT from 08/07/2024.
Robotic Bronchoscopy and EBUS-TBNA 07/2024. RLL Pulmonary Adenocarcinoma, PD-L1 0%, 11R non-diagnostic. NGS +ve for EGFR, KRAS and ERBB2
PET-CT 07/2024: Hypermetabolic mass in the superior segment of the right lower lobe in keeping with the patient's known lung cancer. Low level uptake in the right hilum, indeterminate.
--- NOTE | 2024-12-18 13:02 | PTCARENOTE ---
received patient from pacu. drowsy but arousable. CT placed to water seal. CXR done bedside. 97% 2Lnc. diminished but clear. pulses palpable. PIVx2. L Radial [place]. zeroed. will cotninue to monitor
[2024-12-18] MEDS: FLEXERIL 5 MG PO (14:15)
[2024-12-18] MEDS: NEURONTIN 100 MG PO ×2 (15:47→21:42)
[2024-12-18] MEDS: TYLENOL 1000 MG PO ×2 (15:47→21:42)
--- NOTE | 2024-12-18 17:08 | PTCARENOTE ---
no change in assessment from prior. tolerating sips of clear and pills. see MAR for med dosing. will continue to monitor
[2024-12-18] MEDS: VANCOCIN 200 IV (19:15)
[2024-12-18] MEDS: SENOKOT 8.6 MG PO (20:18)
--- NOTE | 2024-12-18 21:00 | PTCARENOTE ---
Assumed care of pt from manuelmslita RN. Pt AAOx3. Resting in bed at this time. Pt is SR on the tele monitor. HR 60s. BP stable. Palpable pulses throughout. Pt on 2 L NC. POX 98-99%. Right lower lobe breath sounds absent. Diminished throughout. Right
pleural CTx1 to water seal. +1 airleak when pt coughs. Tidaling present. Output appropriate. Abdomen nontender. Hypoactive BS. Pt voiding w/o issue. Right lateral puncture sites approximated and SUBSTATION DESIGN DRAFTSPERSON. PIVx2 intact. Pt repositioned in bed. See
work-list for full nursing assessment and interventions. Call toribio within reach.
[2024-12-19] VITALS (9 sets, daily range): BP systolic 107–133; BP diastolic 57–98; BMI 31.2
--- NOTE | 2024-12-19 00:29 | PTCARENOTE ---
No acute changes in assessment. Pt is SR on the tele monitor. BP stable. 98% on [address] assessment unchanged. Tidaling present. All surgical sites stable. Pt repositioned in bed. Call toribio within reach.
[2024-12-19] MEDS: FLEXERIL 5 MG PO ×2 (01:51→12:04)
[2024-12-19 03:28] LABS: Hematocrit 38.1 % (39.0-52.0); Hemoglobin 13.1 g/dL (13.0-18.0); Mean Corp Hgb Conc. 34.4 g/dL (33.0-37.0); Mean Corpuscular Volume 90.5 fL (80.0-94.0); Platelet Count 232 10^3/uL (130-400); Red Cell Dist. Width 13.1 % (11.5-14.5)
[2024-12-19 04:05] LABS: Blood Urea Nitrogen 12 mg/dl (9-20); Calcium 8.7 mg/dl (8.4-10.2); Carbon Dioxide 27 mmol/L (22-30); Chloride 105 mmol/L (98-107); Estimated Creatinine Clearance > 125 ml/min; Glucose 135 mg/dl (70-99); Magnesium 2.5 mg/dl (1.6-2.3); Potassium 4.5 mmol/L (3.5-5.1); Sodium 138 mmol/L (135-145); eGFR > 60.00
--- NOTE | 2024-12-19 04:07 | PTCARENOTE ---
No change in assessment. Pt is SR on the tele monitor. Occasionally SB. HR mainly 60s. BP stable. 98% on 2 L NC. CTx1 assessment unchanged. To water seal. Labs drawn and sent. All surgical sites stable. Call toribio within reach.
--- NOTE | 2024-12-19 04:19 | W.PN.CT ---
Today's Communication / Plan
-
Plan:
-No major issues overnight
-Successfully extubated in the OR, 12/18/24
-Chest tube transitioned to water seal in CVICU, currently has air leak only with cough, drained 70/270
-CXR this AM shows improved right apical ptx, mild SQ emphysema, f/u official report
-Will consider clamping chest tube with f/u cxr and possible d/c of chest tube today if cxr without significant ptx or SQ emphysema
-Avoid NSAIDs for pain
-Encourage use of IS
-OOB into chair/Ambulate
-F/U pathology
-Home later today vs tomorrow
Assessment / Plan
-
Assessment:
-S/P Robotic assisted thoracic surgery [RATS]/ Right lower lobectomy/Radical lymph node dissection/Intercostal nerve block interspaces 4, 5, 6, 7, 8, by Dr. Hastings, 12/18/24, pod#1
1. Pulmonary adenocarcinoma status post neoadjuvant chemoimmunotherapy
2. Hyperlipidemia
3. History of myocardial infarction
4. Hypertension
5. Tobacco abuse
6. EtOH usage
-Acute postop small right apical ptx (stable)
-Acute postop atelectasis
Discussed patient care with: Nursing, Pharmacy and Care Team
Subjective
Procedure
S/P Robotic assisted thoracic surgery [RATS]/ Right lower lobectomy/Radical lymph node dissection/Intercostal nerve block interspaces 4, 5, 6, 7, 8, by Dr. Hastings, 12/18/24
-
Date of Service: December 19, 2024
Pt c/o mild incisional pain, otherwise feels well
Objective Data
-
Lab Results
12/19/24 03:21
12/19/24 03:21
PT 13.3 Sec (11.4-14.6) 12/05/24 08:45
INR 0.96 12/05/24 08:45
Vital Signs
Vital Signs
Temp Pulse Resp BP Pulse Ox
97.9 F 65 14 121/60 97
12/19/24 04:00 12/19/24 04:00 12/19/24 04:00 12/19/24 04:00 12/19/24 04:00
CT Intake/Output/Weight
12/18/24 12/18/24 12/19/24
06:59 18:59 06:59
Intake Total 200 / 200
Output Total 200 / 1760 1560 / 1760
Balance 0 / -1560 -1560 / -1560
SaO2: 95 (RA)
Physical Exam
-
General: Awake, Oriented and AOx3
Cardiovascular: Regular rate & rhythm and No Murmurs
Respiratory: Decreased Breath Sounds (on right, otherwise clear)
Incision: Clean, Dry, Intact and Dressing Intact
Extremities: No Edema
Data Reviewed
-
Lab Results: Results Reviewed
Medications: Active Meds Reviewed
Chest X-Ray: Report Reviewed and Image Reviewed
ECG: Report Reviewed and Image Reviewed
[2024-12-19] MEDS: TYLENOL 1000 MG PO (05:07)
[2024-12-19] MEDS: VANCOCIN 200 IV (06:27)
--- NOTE | 2024-12-19 07:45 | W.PN.PUL3 ---
Today's Communication / Plan
-
- Defer chest tube management to CT surgery service
- Will arrange outpatient follow-up with pulmonary clinic postdischarge
- Pulmonary service available as needed
Assessment
-
Patient is a very pleasant 64-year-old gentleman with longstanding history of smoking who was noticed to have a right lower lobe mass earlier this year. In 07/2024 patient had a robotic bronchoscopy and EBUS performed and tissue diagnosis was
consistent with adenocarcinoma. Patient was diagnosed with stage II disease with plan for neoadjuvant chemotherapy. Patient has recently completed chemotherapy and is currently on Keytruda. He was subsequently evaluated by CT surgery service, and
was felt to be a good candidate for surgical resection. Patient had a PET scan performed a month ago which showed good response to the initial therapy and absence of extrathoracic disease. Patient today was brought to the OR and had right lower
lobectomy in addition to radical lymph node dissection. Postprocedure, patient was admitted to cardiovascular ICU and extra hand consultation was requested for further input.
Patient with diagnosis of right lower lobe pulmonary adenocarcinoma, s/p RATS, right lower lobectomy and radical lymph node dissection with intercostal nerve block, POD # 1
Patient is off all pressors. Hemodynamically stable.. Saturating 97% on RA. Chest tube right-sided in place with serosanguineous drainage
Pain control
Maintain supplement oxygen as needed
Prior PFTs reviewed
Can add nebulizers if needed. No wheezing on exam.
Aspiration precautions
Encouraged incentive spirometry, OOB/ambulation/early mobility
Advance diet as tolerated per surgery service
Monitor critical I/O's
Post-op labs stable
Can transfuse if indicated for Hb <7, plt <50 in surgical patients
DVT prophylaxis, s.c. Heparin
Underlying medical diagnoses:
- Stage II RLL Adenocarcinoma. s/p Chemotherapy, currently on Keytruda, s/p Surgical resection 12/18, with LN dissection. Resume out patient follow up with Oncology and Pulmonary service
- h/o Smoking. 80 pack years, Quit in 2012. PFT 07/2024. Normal spirometry with mildly reduced diffusion capacity, normal when corrected for alveolar volume. No indication for inhaler therapy. No wheezing on exam
- Trace right apical Pneumothorax. Chest tube in place. Currently tolerating water seal well. Small volume intermittent air leak on forced expiration or coughing. Serial imaging, may consider clamping trial, will defer management to CT surgery
service.
- Alcoholism, drink about 6 beers daily. Recommend addition of Thiamine, monitor for s/s of alcohol withdrawl.
- HTN, HLD
- CAD, h/o PCI of RCA in 2012.
Total time spent on this consultation/encounter _45___ minutes which includes review of history, physical exam, medications, laboratory data, personal review of imaging, extensive review of outpatient records, discussion with care team and
respiratory therapy.
Data:
CXR 12/2024: There is a tiny faint right apical pneumothorax, having developed since prior examination.
CXR 12/2024: Right sided chest tube, mild atelectasis.
PET-CT 11/2024: Positive response to treatment. Improving size and FDG uptake of the hypermetabolic lung cancer in the superior segment of the right lower lobe compared to the previous PET/CT from 08/07/2024.
Robotic Bronchoscopy and EBUS-TBNA 07/2024. RLL Pulmonary Adenocarcinoma, PD-L1 0%, 11R non-diagnostic. NGS +ve for EGFR, KRAS and ERBB2
PET-CT 07/2024: Hypermetabolic mass in the superior segment of the right lower lobe in keeping with the patient's known lung cancer. Low level uptake in the right hilum, indeterminate.
Subjective Data
-
Date of Service:
Date of Service: December 19, 2024
Subjective:
Patient comfortably sitting in chair in no acute distress, has pleuritic discomfort at chest tube insertion site
Review of Systems
Genitourinary: Other (All 14 systems reviewed and negative except as stated above in the history of present illness.)
Objective Data
Data Reviewed
Vital Signs / I&O / Oxygen:
Vital Signs
Temp Pulse Resp BP Pulse Ox
97.9 F 71 14 133/98 97
12/19/24 04:00 12/19/24 06:30 12/19/24 06:15 12/19/24 06:00 12/19/24 06:15
Intake and Output
12/18/24 12/19/24 12/20/24
06:59 06:59 06:59
Intake Total 200 / 200
Output Total 2295 / 2295
Balance -2094 / -2094
SaO2 97
Nasal Cannula flow liters per 2
minute
Physical Exam
General: Comfortable
HEENT: Normocephalic
Cardiovascular: S1-S2
Respiratory: Clear and Non-Labored Respirations
GI: Soft and Non Distended
Neurology: Awake and Alert
Skin: Warm
Labs/Micro/Reports
Lab Data
12/19/24 03:21
12/19/24 03:21
[2024-12-19] MEDS: MIRALAX 17 GRAMS PO (09:07)
[2024-12-19] MEDS: LIDOCAINE 4% PATCH 1 PATCH TOPICAL (09:07)
[2024-12-19] MEDS: VITAMIN B1 100 MG PO (09:08)
[2024-12-19] MEDS: PEPCID 20 MG PO (09:08)
[2024-12-19] MEDS: SENOKOT 8.6 MG PO (09:08)
[2024-12-19] MEDS: ASPIR LOW (ENTERIC COATED) 81 MG PO (09:08)
[2024-12-19] MEDS: TOPROL XL 25 MG PO (09:08)
[2024-12-19] MEDS: CRESTOR 40 MG PO (09:08)
[2024-12-19] MEDS: NEURONTIN 100 MG PO (09:08)
[2024-12-19] MEDS: ZESTRIL 2.5 MG PO (09:08)
[2024-12-19] MEDS: FOLVITE 1 MG PO (09:08)
[2024-12-19] MEDS: TORADOL 15 MG IV (09:09)
[2024-12-19] MEDS: HEPARIN 5000 UNITS SC (09:09)
--- NOTE | 2024-12-19 09:30 | PTCARENOTE ---
assumed care of pt from previous shift RN, sinus rhythm on tele, VSS, + peripheral pulses. Lungs diminished, pox 98-99% on RA. + bs, tolerating PO intake, voids spontaneously. Surgical sites stable, CT clamped. PIV flushes easily. Plan of care
reviewed and questions encouraged.
--- NOTE | 2024-12-19 09:42 | CM ---
Reviewed chart. Met with and Mrs. Rodriguez to review discharge plans. He states he is feeling well and maybe able to go home soon. He states prior to admission he resides with his spouse in a one story jennifer with two steps to enter. He states
prior to admission he was independent with ambulation and adls. . He states he does not have any DME in the home. He is in the process of selecting his Medicare part D prescription plan. We reviewed a home visit by the Transitional Care Nurse. He is
agreeable to a home visit. His spouse states she is off all week and will be home to assist in his care if needed. Medical work-up in progress. The discharge plan is to return home with spouse and a home visit by the Transitional Care Nurse when
medically stable. The discharge plan is to return home with his spouse and a home visit by the Transitional Care Nurse when medically stable.
--- NOTE | 2024-12-19 12:06 | PTCARENOTE ---
pt medicated for pain, CT remains clamped, awaiting result of CXR.
--- NOTE | 2024-12-19 13:52 | W.DCSUMMARY ---
Discharge Summary
Discharge Data
Date of Admission: 12/18/24
Date of Discharge: 12/19/24
-
Pending Results: No
Hospital Course
Primary care physician: Dr. Nancy Muñoz
Outpatient electric operator: Dr. Justice Adams
Inpatient consultants: Pulmonary
Procedures:
1. RATS RLL & LN Dissection
Primary Diagnosis:
1. Right Lower Lobe adenocarcinoma
Secondary Diagnoses:
1. Coronary Artery Disease with stents (2012)
2. Tobacco/ETOH misuse
3. Hypertriglyceridemia
4. B/L rotator cuff repair
HPI: Mr. Sky Rodriguez is a 64-year-old male with a PMHx significant for right lower lobe adenocarcinoma who obtained outpatient consultation after an abnormal PET/CT image (11/15/24) showing hypermetabolic mass in the superior segment RLL. Patient
underwent chemotherapy and was further recommended for surgical intervention for RATS RLL + LN dissection with Dr. Rogelio Hastings on 12/18/24.
Hospital course: Patient is a 64-year-old male who was admitted for an elective RATS RLL and LN dissection with Dr. Hastings on 12/18/2024. Please see surgeons note for full operative report. Postoperatively, patient was extubated within the operating
room and recovered in PACU. The right pleural chest tube was placed to water seal with a small intermittent airleak, no crepitus noted. Follow-up chest x-ray did not show worsening subcutaneous air or pneumothorax. On postoperative day 1, R
pleural chest tube was clamped. Follow-up CXR did not show subcutaneous air or PTX. Patients R pleural chest tube was removed without issue and remaining suture was dressed with Vaseline gauze. His pain was well controlled with use of OTC Tylenol,
Gabapentin, and Flexeril as needed. He was ambulating in the hallway and tolerating a regular diet. He was discharged to home with plan to follow-up with the CTS office within 7-10 days for chest tube suture removal and routine postoperative
appointment. He will receive follow-up care with Transitional Care Nursing within 2-3 days from discharge.
Home medication changes:
- See list provided below.
Discharge Plan
-
Patient Disposition: Home (Routine Discharge)
Discharge Diagnosis/Procedures: Right Lower Lobe RATS with Lymph Node Dissection with Dr. Rogelio Hastings on 12/18/24
Condition: Good
Diet: Regular
Activity: No strenuous activity
Driving Restrictions: Not until seen by your Dr
Bathing Restrictions: OK to Shower
Wound Care: Shower daily with soap & water. No lotions, creams, or powders on procedural sites.
Remaining chest tube suture to be removed upon follow-up in cardiac surgery office with RICARDA Bradshaw.
Referrals:
CT Transitional Care Nurse [Outside] - in one to two days
Referral Note:
The Cardiothoracic Transitional Care Nurse will call you to set up a visit in 1-2 days.
Fauzia Clark MD [Active, Pulmonary Medicine] - in four to six weeks
Nancy Muñoz PA-C [Family Provider, Family Practice]
Leeann Guillermo CRNP [Specified Professional Personl, Cardiac Surgery] - 01/03/25 9:30 am
Referral Note: Follow-up appointment s/p RATS with Dr. Hastings & chest tube suture removal
Prescriptions:
New
cyclobenzaprine 10 mg Tablet
5 mg PO Q8HPRN PRN (Reason: muscle spasm) Qty: 14 0RF
gabapentin 100 mg Capsule
100 mg PO TID 8 Days Qty: 24 0RF
sennosides [Lidia-ale] 8.6 mg Tablet
8.6 mg PO BIDPRN PRN (Reason: Constipation) Qty: 0 0RF
acetaminophen 325 mg Tablet
650 mg PO Q6HPRN PRN (Reason: mild pain,headache,temp >101F ) Qty: 0 0RF
Continued
aspirin 81 MG tablet,delayed release (DR/EC)
81 mg PO DAILY Qty: 0 0RF
lisinopril 2.5 MG tablet
2.5 mg PO DAILY Qty: 30 5RF
rosuvastatin [Crestor] 40 MG tablet
40 mg PO DAILY
famotidine 10 mg Tablet
10 mg PO DAILY
metoprolol succinate 25 mg Tablet Extended Release 24 Hr
25 mg PO DAILY
folic acid 1 mg Tablet
1 mg PO DAILY
Keytruda
1 dose IV Q3W
Patient Comments:
timeframe for frequency undetermined at this time.
Discontinued
Aleve 220 MG
1 tab PO PRN PRN (Reason: PAIN)
Patient Comments:
Last dose taken on 12/09/2024.
Discharge Orders:
Discharge Patient (As Directed); Ordered 12/19/24
Ordered By: Lisa Allison
Care Plan Goals
Care Plan Goals:
Problem: Readiness for enhanced knowledge related to diagnosis and treatment plan
Goal: Understand your diagnosis and treatment plan needs, including medications if applicable.
Instructions: Know your diagnosis, underlying causes and treatment plan options, including medications if applicable. Consult with your health care team to learn about your diagnosis and treatment plan, including medications if applicable.
Discharge Date and Time
Discharge Date/Time: 12/19/24 15:39
Print Language: NEPALI
[2024-12-19] MEDS: TYLENOL PO (15:04)
--- NOTE | 2024-12-19 15:04 | PTCARENOTE ---
CT removed by CT mary
--- NOTE | 2024-12-19 15:29 | PTCARENOTE ---
tele monitor and IV line removed. Discharge instructions, follow up appointments and medication list reviewed w the pt and his . Questions encouraged.
== END 2024-12-19 15:39 | disposition home or self-care (01) | DRG 164 ==
LOC: CVICU 04:56
PROVIDERS: ADMITTING PHYSICIAN Thoracic Surgery (Cardiothoracic Vascular Surgery); FAMILY PHYSICIAN Physician Assistant Medical; OTHER PHYSICIAN Internal Medicine; REFERRING PHYSICIAN Internal Medicine Hematology & Oncology
PROC: 0BTF4ZZ Resection of Right Lower Lung Lobe, Percutaneous Endoscopic Approach (ICD-10-PCS; 2024-12-18)
PROC: 8E0W4CZ Robotic Assisted Procedure of Trunk Region, Percutaneous Endoscopic Approach (ICD-10-PCS; 2024-12-18)
PROC: 07T74ZZ Resection of Thorax Lymphatic, Percutaneous Endoscopic Approach (ICD-10-PCS; 2024-12-18)
DX: C34.31 Malignant neoplasm of lower lobe, right bronchus or lung (principal); J95.811 Postprocedural pneumothorax; J98.11 Atelectasis; I10 Essential (primary) hypertension; I25.10 Atherosclerotic heart disease of native coronary artery without angina pectoris; E78.1 Pure hyperglyceridemia; F10.20 Alcohol dependence, uncomplicated; Y83.6 Removal of other organ (partial) (total) as the cause of abnormal reaction of the patient, or of later complication, without mention of misadventure at the time of the procedure; I25.2 Old myocardial infarction; Z77.090 Contact with and (suspected) exposure to asbestos; Z79.82 Long term (current) use of aspirin; Z79.899 Other long term (current) drug therapy; Z82.49 Family history of ischemic heart disease and other diseases of the circulatory system; Z87.01 Personal history of pneumonia (recurrent); Z87.891 Personal history of nicotine dependence; Z95.5 Presence of coronary angioplasty implant and graft
CPT/HCPCS: 32505; 36415; 71045; 80048; 80053; 81003; 81015; 82248; 83036; 83735; 85025; 85027; 85610; 86850; 86900; 86901; 87070; 88305; 88309; 93005

== ENCOUNTER 2024-12-21 08:40 | Inpatient (IN) | payer MEDICARE, OTHER, SELFPAY ==
[2024-12-21] VITALS (11 sets, daily range): BP systolic 67–156; BP diastolic 58–81; BMI 31.9
--- NOTE | 2024-12-21 09:06 | HPS.HSE ---
Family Physician
-
Family Physician: Cameron Riley, DO
Chief Complaint
-
Shortness of breath
History of Present Illness
Mr Sky Rodriguez is a 64-year-old male with a PMHx significant for RLL adenocarcinoma s/p chemotherapy and robotic assisted thoracic surgery (RATS) of right lower lobe (RLL) with lymph node dissction (LN) dissection with Dr. Rogelio Hastings on 12/18/24
who presented to outpatient radiology due to complaints of shortness of breath. Mr. Rodriguez was recently discharged home on 12/19/2024 s/p RATS of RLL with LN dissection with follow-up from transitional care nursing (TCN). TCN noted during home visit
on 12/20/24 that patient experienced chest tightness and intermittent shortness of breath after a coughing episode which subsided after several minutes. He reported a strong, productive, intermittent cough in which he has been taking Mucinex. It was
reported by TCN that patient had small crepitus on right back localized around prior R chest tube insertion site. Patient was referred to obtain chest x-ray today as outpatient for further assessment.
Today, chest x-ray revealed new, moderate-sized, right pneumothorax in which he was admitted for further management. Upon physical assessment, patient was noted to have crepitus around right scapula which progressed down right upper extremity
towards elbow. Crepitus did not migrate towards patient's neck and lower face. Patient denied any dyspnea on exertion, shortness of breath at rest, chest pain, orthopnea, lightheadedness, dizziness, edema, constipation. He reported pain has been
well-controlled at home with Tylenol as needed and scheduled gabapentin upon discharge. He reports prior use of mucinex for chronic cough.
Medical History
Past Medical History
Past Medical History: Reports CAD (Stents (2013)), Cancer, HTN and Hypercholesterolemia
Additional Past Medical History:
Past Surgical History: Reports Orthopedic (B/L rotator cuff repair)
Social History
Tobacco: Former Smoker
Alcohol: Daily (8-beers/day)
Drug: None
Personal:
Living: With Family
Family History
Family History: Not pertinent
Allergies / Home Medications
Allergies reflects when Allergies were last updated in [facility].
Home Medications with original date entered in [facility]
Allergy/Medication List:
Penicillin (Rash)
Review of Systems
-
History Source: Patient
A 12 point ROS was completed and negative except as noted: Yes
Constitutional: Reports See HPI
EENT: Reports No Symptoms
Respiratory: Reports See HPI and Cough
Cardiac: Reports No Symptoms
Abdomen/GI: Reports No Symptoms
: Reports No Symptoms
Musculoskeletal: Reports No Symptoms
Skin: Reports Other (Procedural sites to R lateral chest)
Neurological: Reports No Symptoms
Endocrine: Reports No Symptoms
Hematologic/Lymphatic: Reports No Symptoms
Psych: Reports No Symptoms
Physical Exam
Vital Signs
Vital Signs
Temp Pulse Pulse Ox
97.8 F 80 98
12/21/24 08:53 12/21/24 08:53 12/21/24 08:53
Physical Exam
General: Well Developed, No Apparent Distress, Comfortable and Pain (with deep inspiration/coughing)
HEENT: NormoCephalic, Atraumatic and PERRLA
Respiratory: Clear, Crackles (RUL) and Non Labored Respirations
Cardiac: S1/S2 and Regular Rhythm
Breast: N/A
GI: Soft, Non Tender, Non Distended and Normal Bowel Sounds
Genito-urinary: Clear Urine
Musculoskeletal: Edema, Right Upper Extremity (crepitus in RUE from shoulder to elbow)
Skin: Warm, Dry and Other (R chest tube suture intact, R procedural site with dermabond)
Neuro: Awake, Alert and AO x 3
Psych: Calm and Intact Judgment/Insight
Impression/Plan
-
IMPRESSION:
Mr. Rodriguez is a 64-year-old male who underwent recent RATS of RLL and LN dissection with Dr. Hastings on 12/18/24 who presented for follow-up outpatient chest x-ray due to complaints of shortness of breath at home. He was found to have a new, moderate
sized, right pneumothorax with associated subcutaneous emphysema without hypoxia in which he was referred for inpatient admission.
PLAN:
#Right Pneumothorax
- R PTX secondary to s/p RATS of RLL with LN dissection by Dr. Hastings on 12/18/24
- R CT chest removed 12/19/24 following clamp trial & f/u CXR without PTX
- Reports coughing episode at home with onset of intermittent SOB/chest discomfort
- Presenting without hypoxia, increased WOB/SOB
- CXR (12/21/24) showing new, moderate R PTX
- Interventional Radiology consulted for placement of chest tube
- Multimodal pain control ordered
- Gabapentin 100 mg TID
- Tylenol 650 mg PO PRN
- Flexeril 5 mg PO PRN
- Please notify provider for hypoxia, increased SOB, new or increasing subcutaneous air
#Malignant neoplasm of RLL
- known pulmonary adenocarcinoma s/p neoadjuvant chemoimmunotherapy
- s/p RATS with LN dissection 12/18/24
- to follow with [facility] as outpatient in 4-6 weeks
#CAD
- Pt with known PMHx of CAD with prior IL s/p stents (2012)
- Continue prior outpatient regiment (ASA,BB, Crestor, ACEi)
#Hypercholesteremia
- Known PMHx
- Continue outpatient regiment (crestor)
#Hypertension
- Known PMHx
- Continue outpatient regiment (ACEi)
#ETOH Misuse
- reports prior ETOH use of 8+ beers/day
- no ETOH use since prior to last admission 12/18/24
- continue folic acid/thiamine
[2024-12-21 09:56] LABS: Hematocrit 36.3 % (39.0-52.0); Hemoglobin 12.1 g/dL (13.0-18.0); Mean Corp Hgb Conc. 33.3 g/dL (33.0-37.0); Mean Corpuscular Volume 92.1 fL (80.0-94.0); Platelet Count 253 10^3/uL (130-400); Red Cell Dist. Width 13.2 % (11.5-14.5)
[2024-12-21 10:02] LABS: APTT 29.6 Sec (23.4-35.0); INR 0.92; PT 12.9 Sec (11.4-14.6)
[2024-12-21 10:09] LABS: ALT (SGPT) 26 U/L (0-50); AST (SGOT) 35 U/L (17-59); Albumin 3.7 g/dl (3.5-5.0); Alkaline Phosphatase 84 U/L (38-126); Blood Urea Nitrogen 15 mg/dl (9-20); Calcium 8.8 mg/dl (8.4-10.2); Carbon Dioxide 28 mmol/L (22-30); Chloride 106 mmol/L (98-107); Estimated Creatinine Clearance 110 ml/min; Glucose 102 mg/dl (70-99); Magnesium 2.2 mg/dl (1.6-2.3); Potassium 3.8 mmol/L (3.5-5.1); Sodium 138 mmol/L (135-145); Total Protein 6.1 g/dl (6.3-8.2); eGFR > 60.00
[2024-12-21] MEDS: PROTONIX PO (10:21)
--- NOTE | 2024-12-21 10:23 | PTCARENOTE ---
Received patient as a direct admission after he had a CXR here which showed a pneumothorax. Patient states he was coughing yesterday and felt a popping sensation in his chest after. Patient ambulated from radiology with a volunteer, no SOB noted,
98% on RA. 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 Placed on telemetry, in SR, labs sent and patient transported to IR for chest tube placement.
--- NOTE | 2024-12-21 10:41 | CM ---
Chart reviewed. Patient recently discharged from the hospital and now back with a pneumothorax. Patient is independent of ADLS, lives with his in a 1 STH, 1 MELE, 0 DME. Plan is for the patient to return home. CM to follow
[2024-12-21] MEDS: MUCINEX 1200 MG PO ×2 (12:38→19:57)
[2024-12-21] MEDS: VITAMIN B1 100 MG PO ×2 (12:38→19:58)
[2024-12-21] MEDS: NEURONTIN 100 MG PO ×2 (12:38→18:35)
--- NOTE | 2024-12-21 13:00 | PTCARENOTE ---
Patient returned from IR at 1225, R anterior CT in place and placed to -20cm suction, 10ml of bloody drainage noted in collection chamber. Monitoring VS, patient given dose of prn gabapentin, at the bedside, call toribio in reach.
[2024-12-21] MEDS: FLEXERIL 5 MG PO (15:52)
[2024-12-21] MEDS: CRESTOR PO (17:38)
[2024-12-21] MEDS: TYLENOL 650 MG PO (18:35)
--- NOTE | 2024-12-21 19:15 | PTCARENOTE ---
R CT remains at -20 cm suction. Patient was coughing, non-productive and had pain throughout right lateral chest and at CT site. Medicated with tylenol and gabapentin as ordered.
[2024-12-21] MEDS: SENOKOT 8.6 MG PO (19:58)
[2024-12-21] MEDS: HEPARIN 5000 UNITS SC (19:58)
--- NOTE | 2024-12-21 23:56 | PTCARENOTE ---
Pt rec'd in bed, assisted to standing position to void.Pt reports pain from Chest tube only occurs when coughing otherwise he's comfortable. Right ant chest site with DDI hooked to 20cm of wall suction. Minimal output noted. Pt denies rspo distress.
Crepitus can be heard and felt in right ant chest,shoulder and right upper back. Sinus on telemetry.
[2024-12-22 03:46] VITALS: BP 134/70
[2024-12-22] MEDS: FLEXERIL 5 MG PO ×2 (05:55→15:04)
[2024-12-22 06:00] VITALS: BMI 31.6
--- NOTE | 2024-12-22 08:03 | W.PN.CT ---
Today's Communication / Plan
-
-pod #4 post RLL lobectomy
-R CT on -20 sxn, minimal output. No air leak with breathing or cough, has subcut emphysema at R upper back, neck and R upper arm
-follow daily CXR
-continue Mucinex for cough
-on sq Heparin for DVT prophylaxis
-current meds (ASA, Crestor, Zestril, Toprol, Mucinex, sq Heparin)
-encourage IS, ambulate
Assessment / Plan
-
-Re-admitted 12/21/24 for moderate-size R PTX with increased subcut emphysema after significant coughing at home - [address] placed on the R by IR on 12/21 with resolution of PTX
-S/P Robotic assisted thoracic surgery [RATS]/ Right lower lobectomy/Radical lymph node dissection/Intercostal nerve block interspaces 4, 5, 6, 7, 8, by Dr. aHstings, 12/18/24
-Pulmonary adenocarcinoma status post neoadjuvant chemoimmunotherapy
-Hyperlipidemia
-History of myocardial infarction
-Hypertension
-Tobacco abuse
-EtOH usage
-Acute postop small right apical ptx (stable)
-Acute postop atelectasis
Discussed patient care with: Nursing and Care Team
Subjective
-
Date of Service: December 21, 2024
Objective Data
-
Lab Results
12/21/24 09:41
12/21/24 09:41
PT 12.9 Sec (11.4-14.6) 12/21/24 09:41
INR 0.92 12/21/24 09:41
APTT 29.6 Sec (23.4-35.0) 12/21/24 09:41
Vital Signs
Vital Signs
Temp Pulse Resp BP Pulse Ox
98.4 F 71 18 136/59 95
12/21/24 20:10 12/21/24 16:45 12/21/24 20:10 12/21/24 15:44 12/21/24 20:10
CT Intake/Output/Weight
12/21/24 12/21/24 12/22/24
06:59 18:59 06:59
Intake Total 480 / 480
Output Total 615 / 615
Balance -135 / -135
SaO2: 95
Physical Exam
-
General: Awake and AOx3
Cardiovascular: Regular rate & rhythm, No Murmurs and No Rub
Respiratory: Rhonchi (on R. ), Decreased Breath Sounds (b/l) and Other (subcutaneous emphysema at upper R back, base of the neck and R upper arm)
Incision: Clean, Dry, Intact and Dressing Intact
Extremities: No Edema
Abdomen: soft, nontender, nondistended
Data Reviewed
-
Lab Results: Results Reviewed
Medications: Active Meds Reviewed
Chest X-Ray: Report Reviewed and Image Reviewed
ECG: Report Reviewed and Image Reviewed
[2024-12-22 09:16] VITALS: BP 135/62
[2024-12-22] MEDS: TOPROL XL 25 MG PO (09:16)
[2024-12-22] MEDS: SENOKOT 8.6 MG PO ×2 (09:16→19:32)
[2024-12-22] MEDS: PROTONIX 40 MG PO (09:16)
[2024-12-22] MEDS: MUCINEX 1200 MG PO ×2 (09:17→19:31)
[2024-12-22] MEDS: HEPARIN 5000 UNITS SC ×2 (09:17→19:33)
[2024-12-22] MEDS: FOLVITE 1 MG PO (09:17)
[2024-12-22] MEDS: ASPIR LOW (ENTERIC COATED) 81 MG PO (09:17)
[2024-12-22] MEDS: ZESTRIL 2.5 MG PO (09:17)
[2024-12-22] MEDS: VITAMIN B1 100 MG PO ×2 (09:17→19:32)
[2024-12-22 12:20] VITALS: BP 123/63
--- NOTE | 2024-12-22 16:03 | CM ---
Chart reviewed. Patient with chest tube to H20 seal. Patient is independent of ADLS, lives with his in a 1 STH, 1 MELE, 0 DME. Plan is for the patient to return home. CM to follow
[2024-12-22 16:22] VITALS: BP 126/63
[2024-12-22] MEDS: CRESTOR 40 MG PO (18:14)
--- NOTE | 2024-12-22 18:56 | PTCARENOTE ---
~4655-2723: handoff report received from nightshift RN. Pt Aox4, NSR on tele 80s-90s, SBP 130s, RA satting 94%. lungs diminished throughout. IS 1500. Trace edema BLE. Pt does not c/o pain at this time, pain manadeged with PRN flexiril. Chest tube
-20 suction, no airleak noted at this time. Crepitus noted r upper chest, to shoulder and down R side of back/ flank. Dressing CDI. No output at this time. All needs met, call toribio within reach.
~2524-8819: Chest tube placed on H2O seal per order. Patient resting in bed.
~0932-8688: Patient resting in room. Ambulating around unit with chest tube as tolerated independently. CXR completed per order and resulted with 'interval development of small apical pneumothorax.' Brenda WILSON made aware, no new orders at this
time.
~7301-2809: Pt c/o pain, PRN flexeril given.
~6709-6406: Patient independent in room with Chest tube to H2O seal. Pt does not c/o pain at this time. VSS. All needs met, call toribio within reach. Handoff report given to nightshift RN.
[2024-12-22 19:18] VITALS: BP 124/62
[2024-12-22] MEDS: NEURONTIN 100 MG PO (19:32)
[2024-12-22] MEDS: TYLENOL 650 MG PO (19:32)
[2024-12-22 22:14] VITALS: BP 123/59
--- NOTE | 2024-12-23 01:45 | PTCARENOTE ---
Assumed care of patient at change of shift.Tele monitor remains NSR, HR in the 70-80's at rest. Chest tube remains on H20 seal. Dressing intact. Tube draining serosanguineous fluid. Sating 95-97% RA. Pt has crepitus throughout his posterior right
back. He only c/o discomfort after a coughing fit. PRN Tylenol administered at 19:32. IS performed w/ a result of 1500. Pt ambulates self in room w/out difficulty. Call toribio within reach.
[2024-12-23] MEDS: FLEXERIL 5 MG PO (02:43)
[2024-12-23 02:48] VITALS: BMI 31.2
[2024-12-23 02:49] VITALS: BP 118/72
--- NOTE | 2024-12-23 06:42 | W.PN.CT ---
Addendum entered and electronically signed by Joel Jackson MD 12/23/24 09:38:
CHERYL 2245: s/p RLLobectomy � readmit w/ PTX � s/p pigtail catheter
No major overnight events.� AVSS.� RA.� No gtts.� CT: , no air leak on water seal; CXR w/ no significant PTX (? tiny apical), subcutaneous emphysema.�
-��������� Maintain CT today to water seal
-��������� Follow daily CXRs
-��������� Potential clamp trial on Wednesday
Original Note:
Today's Communication / Plan
-
Plan:
-No issues overnight
-Has been on water seal since yesterday, no air leak observed. Drained
-I cannot appreciate a ptx on cxr this AM, SQ emphysema has improved to my eyes. F/U official report
-Will consider chest tube to water seal another day vs clamp and d/c
-OOB into chair/Ambulate
-Avoid NSAIDs for pain
Assessment / Plan
-
-Re-admitted 12/21/24 for moderate-size R PTX with increased subcut emphysema after significant coughing at home - [address] placed on the R by IR on 12/21 with resolution of PTX
-S/P Robotic assisted thoracic surgery [RATS]/ Right lower lobectomy/Radical lymph node dissection/Intercostal nerve block interspaces 4, 5, 6, 7, 8, by Dr. Hastings, 12/18/24
-Pulmonary adenocarcinoma status post neoadjuvant chemoimmunotherapy
-Hyperlipidemia
-History of myocardial infarction
-Hypertension
-Tobacco abuse
-EtOH usage
-Acute postop small right apical ptx (stable)
-Acute postop atelectasis
Discussed patient care with: Cardiology, Nursing, Respiratory Therapy, Pharmacy and Care Team
Subjective
-
Date of Service: December 23, 2024
Pt c/o pleuritic chest pain, otherwise feels well
Objective Data
-
Lab Results
12/21/24 09:41
12/21/24 09:41
PT 12.9 Sec (11.4-14.6) 12/21/24 09:41
INR 0.92 12/21/24 09:41
APTT 29.6 Sec (23.4-35.0) 12/21/24 09:41
Vital Signs
Vital Signs
Temp Pulse Resp BP Pulse Ox
97.9 F 73 18 118/72 96
12/23/24 02:48 12/23/24 05:00 12/23/24 02:48 12/23/24 02:49 12/23/24 02:[address] Intake/Output/Weight
12/22/24 12/22/24 12/23/24
06:59 18:59 06:59
Intake Total 240 / 720 360 / 360
Output Total 1405 / 2020 654 / 684 30 / 684
Balance -1165 / -1300 -654 / -324 330 / -324
SaO2: 96 (RA)
Physical Exam
-
General: Awake, Oriented and AOx3
Cardiovascular: Regular rate & rhythm, No Murmurs and No Gallop
Respiratory: Decreased Breath Sounds (on right)
Incision: Clean, Dry, Intact and Dressing Intact
Extremities: No Edema
Data Reviewed
-
Lab Results: Results Reviewed
Medications: Active Meds Reviewed
Chest X-Ray: Report Reviewed and Image Reviewed
ECG: Report Reviewed and Image Reviewed
[2024-12-23 07:16] VITALS: BP 112/65
[2024-12-23] MEDS: HEPARIN 5000 UNITS SC ×2 (08:18→19:56)
[2024-12-23] MEDS: FOLVITE 1 MG PO (08:18)
[2024-12-23] MEDS: ZESTRIL 2.5 MG PO (08:18)
[2024-12-23] MEDS: TOPROL XL 25 MG PO (08:18)
[2024-12-23] MEDS: VITAMIN B1 100 MG PO ×2 (08:18→19:55)
[2024-12-23] MEDS: SENOKOT 8.6 MG PO ×2 (08:18→19:55)
[2024-12-23] MEDS: ASPIR LOW (ENTERIC COATED) 81 MG PO (08:18)
[2024-12-23] MEDS: PROTONIX 40 MG PO (08:18)
[2024-12-23] MEDS: MUCINEX 1200 MG PO ×2 (08:18→19:55)
[2024-12-23] MEDS: NEURONTIN 100 MG PO ×3 (08:18→22:23)
[2024-12-23 12:39] VITALS: BP 115/61
[2024-12-23] MEDS: CRESTOR 40 MG PO (15:52)
[2024-12-23] MEDS: TYLENOL 650 MG PO ×2 (15:55→22:23)
[2024-12-23 16:11] VITALS: BP 125/61
[2024-12-23 19:42] VITALS: BP 126/58
[2024-12-23 22:18] VITALS: BP 125/63
--- NOTE | 2024-12-23 23:56 | PTCARENOTE ---
Tele monitor shows NSR, HR in the 80-90's. VSS. IS performed w/ a result of 1999. Pt has an occasional harsh cough. Lungs clear. Chest tube to H20 seal, and draining serosanguineous fluid. Dressing intact, due to be changed in AM. Crepitus noted
right back into his right upper arm down to his elbow. Ed Sisi made aware of crepitus. Patient aware of POC, and can make needs known. Call toribio in reach.
[2024-12-24 02:01] VITALS: BMI 31.2
[2024-12-24 02:03] VITALS: BP 125/75
--- NOTE | 2024-12-24 06:51 | W.PN.CT ---
Addendum entered and electronically signed by Joel Jackson MD 12/24/24 09:32:
I saw and examined the patient.
The PA's note was reviewed and I agree with the note.
Comment:
CXR improved w/ less subcutaneous empysema, no air on water seal
If OK w/ Dr. Hastings, will plan for clamp trial at [facility] w/ AM CXR
OOB/IS/ambulate
Original Note:
Today's Communication / Plan
-
Plan:
-No issues overnight
-Has been on water seal since 12/22, no air leak observed. Drained
-I cannot appreciate a ptx on cxr this AM, SQ emphysema has improved to my eyes. F/U official report
-Will consider chest clamping chest tube @ midnight with repeat cxr in AM, d/c of chest tube tomorrow
-OOB into chair/Ambulate
-Avoid NSAIDs for pain
Assessment / Plan
-
-Re-admitted 12/21/24 for moderate-size R PTX with increased subcut emphysema after significant coughing at home - [address] placed on the R by IR on 12/21 with resolution of PTX
-S/P Robotic assisted thoracic surgery [RATS]/ Right lower lobectomy/Radical lymph node dissection/Intercostal nerve block interspaces 4, 5, 6, 7, 8, by Dr. Hastings, 12/18/24
-Pulmonary adenocarcinoma status post neoadjuvant chemoimmunotherapy
-Hyperlipidemia
-History of myocardial infarction
-Hypertension
-Tobacco abuse
-EtOH usage
-Acute postop small right apical ptx (stable)
-Acute postop atelectasis
Discussed patient care with: Cardiology, Nursing, Respiratory Therapy, Pharmacy and Care Team
Subjective
-
Date of Service: December 24, 2024
Pt c/o pleuritic chest pain, otherwise feels well
Objective Data
-
Lab Results
12/21/24 09:41
12/21/24 09:41
PT 12.9 Sec (11.4-14.6) 12/21/24 09:41
INR 0.92 12/21/24 09:41
APTT 29.6 Sec (23.4-35.0) 12/21/24 09:41
Vital Signs
Vital Signs
Temp Pulse Resp BP Pulse Ox
98 F 81 16 125/75 96
12/24/24 02:06 12/24/24 05:00 12/24/24 02:06 12/24/24 02:03 12/24/24 02:06
CT Intake/Output/Weight
12/23/24 12/23/24 12/24/24
06:59 18:59 06:59
Intake Total 360 / 360 1820 / 2180 360 / 2180
Output Total 30 / 684 55 / 67
Balance 330 / -324 1765 / 2113 348 / 2113
SaO2: 96 (RA)
Physical Exam
-
General: Awake, Oriented and AOx3
Cardiovascular: Regular rate & rhythm, No Murmurs, No Rub and No Gallop
Respiratory: Decreased Breath Sounds (at right, otherwise clear)
Sternum: Stable
Incision: Clean, Dry, Intact and Dressing Intact
Extremities: Other (+trace edema)
Data Reviewed
-
Lab Results: Results Reviewed
Medications: Active Meds Reviewed
Chest X-Ray: Report Reviewed and Image Reviewed
ECG: Report Reviewed and Image Reviewed
[2024-12-24 07:09] VITALS: BP 120/60
[2024-12-24] MEDS: PROTONIX 40 MG PO (08:16)
[2024-12-24] MEDS: FOLVITE 1 MG PO (08:17)
[2024-12-24] MEDS: VITAMIN B1 100 MG PO ×2 (08:17→19:53)
[2024-12-24] MEDS: SENOKOT 8.6 MG PO ×2 (08:17→19:52)
[2024-12-24] MEDS: NEURONTIN 100 MG PO ×3 (08:17→21:30)
[2024-12-24] MEDS: ZESTRIL 2.5 MG PO (08:17)
[2024-12-24] MEDS: TOPROL XL 25 MG PO (08:17)
[2024-12-24] MEDS: MUCINEX 1200 MG PO ×2 (08:17→19:52)
[2024-12-24] MEDS: ASPIR LOW (ENTERIC COATED) 81 MG PO (08:17)
[2024-12-24] MEDS: HEPARIN 5000 UNITS SC ×2 (08:18→19:53)
[2024-12-24 11:32] VITALS: BP 131/63
[2024-12-24 16:18] VITALS: BP 126/61
[2024-12-24] MEDS: CRESTOR 40 MG PO (16:51)
[2024-12-24 19:15] VITALS: BP 133/65
--- NOTE | 2024-12-24 19:16 | PTCARENOTE ---
~[id number]: Handoff report received from christian BEDOYA. Pt OOB in chair at this time. AOx4, NSR 80s-90s on tele, SBP 120s, RA satting 97%, occassional dry cough. Pt denies pain at this time. Independent in room, frequently walking the halls and with
IS. Chest tube dressing CDI. Chest tube to H2O seal, no airleak or tidaling noted. Slight crepitus in RUE, chest and lower R side back, but is improving. Rodolfo BOTTLE HOUSE PUMPER in to see patient and discuss plan of care, Chest tube to be clamped at 0000 and
f/u CXR in AM. Surgical incisions along R flank approximated with skin glue and SALES RESEARCH ANALYST. All needs met at this time, call toribio within reach.
~8170-9455: VSS at this time. Pt has no requests on complaints. Independent in room and using IS. All needs met at this time, call toribio within reach.
~4236-2524: PM meds given. pt denies pain at this time. Chest tube to H2O seal, to be clamped at 0000 per order. VSS. All needs met at this time, call toribio within reach. handoff report given to manuel BEDOYA.
[2024-12-24] MEDS: TYLENOL 650 MG PO (19:24)
[2024-12-24 22:49] VITALS: BP 125/66
--- NOTE | 2024-12-25 00:38 | PTCARENOTE ---
Received pt @ change of shift. AAOx3, VSS--NSR on monitor. Chest tube in place to H20 seal, dressing CDI, no tidaling or air-leak visible. Crepitus present in right upper arm, chest and, back. Discussed plan of care for evening, including clamping
tube @ 0000. Pt verbalizes understanding. Call toribio within reach.
[2024-12-25 05:12] VITALS: BP 117/57
[2024-12-25 05:13] VITALS: BMI 30.8
--- NOTE | 2024-12-25 06:03 | W.PN.CT ---
Today's Communication / Plan
-
Plan:
-No issues overnight
-Chest tube was clamped at midnight. No air leak observed prior to clamping
-Tiny right apical ptx on cxr this AM, SQ emphysema unchanged to my eyes. F/U official report
-Dr. Hastings to see pt
-OOB into chair/Ambulate
-Avoid NSAIDs for pain
Assessment / Plan
-
-Re-admitted 12/21/24 for moderate-size R PTX with increased subcut emphysema after significant coughing at home - [address] placed on the R by IR on 12/21 with resolution of PTX
-S/P Robotic assisted thoracic surgery [RATS]/ Right lower lobectomy/Radical lymph node dissection/Intercostal nerve block interspaces 4, 5, 6, 7, 8, by Dr. Hastings, 12/18/24
-Pulmonary adenocarcinoma status post neoadjuvant chemoimmunotherapy
-Hyperlipidemia
-History of myocardial infarction
-Hypertension
-Tobacco abuse
-EtOH usage
-Acute postop small right apical ptx (stable)
-Acute postop atelectasis
Discussed patient care with: Cardiology, Nursing, Respiratory Therapy, Pharmacy and Care Team
Subjective
-
Date of Service: December 25, 2024
Pt offers no complaints
Objective Data
-
Lab Results
12/21/24 09:41
12/21/24 09:41
PT 12.9 Sec (11.4-14.6) 12/21/24 09:41
INR 0.92 12/21/24 09:41
APTT 29.6 Sec (23.4-35.0) 12/21/24 09:41
Vital Signs
Vital Signs
Temp Pulse Resp BP Pulse Ox
98.2 F 82 16 125/66 97
12/25/24 05:12 12/25/24 05:00 12/25/24 05:12 12/24/24 22:49 12/25/24 05:12
CT Intake/Output/Weight
12/24/24 12/24/24 12/25/24
06:59 18:59 06:59
Intake Total 360 / 2180
Output Total
Balance 348 / 2113 -36
SaO2: 97 (RA)
Physical Exam
-
General: Awake, Oriented and AOx3
Cardiovascular: Regular rate & rhythm, No Murmurs and No Gallop
Respiratory: Decreased Breath Sounds (on right, otherwise clear)
Incision: Clean, Dry, Intact and Dressing Intact
Extremities: No Edema
Data Reviewed
-
Lab Results: Results Reviewed
Medications: Active Meds Reviewed
Chest X-Ray: Report Reviewed and Image Reviewed
ECG: Report Reviewed and Image Reviewed
--- NOTE | 2024-12-25 07:00 | PTCARENOTE ---
Assumed care at 0700. Patient walking in room. Chest tube clamped at 0600. Denies pain or shortness of breath
[2024-12-25 07:25] VITALS: BP 131/67
[2024-12-25] MEDS: MUCINEX 1200 MG PO (08:21)
[2024-12-25] MEDS: PROTONIX 40 MG PO (08:21)
[2024-12-25] MEDS: NEURONTIN 100 MG PO ×2 (08:21→15:27)
[2024-12-25] MEDS: FOLVITE 1 MG PO (08:21)
[2024-12-25] MEDS: VITAMIN B1 100 MG PO (08:22)
[2024-12-25] MEDS: SENOKOT 8.6 MG PO (08:22)
[2024-12-25] MEDS: ZESTRIL 2.5 MG PO (08:22)
[2024-12-25] MEDS: TOPROL XL 25 MG PO (08:22)
[2024-12-25] MEDS: ASPIR LOW (ENTERIC COATED) 81 MG PO (08:22)
[2024-12-25] MEDS: HEPARIN 5000 UNITS SC (08:24)
--- NOTE | 2024-12-25 11:34 | W.PN.UPDATE ---
Update Note
Progress Note Update
R apical chest tube removed by me without incident. Pt tolerated well. keep vaseline gauze dressing intact x48 hrs, then OK for dry dressings or [employer]. follow up CXR in 1 hour. Likely for discharge later today.
[2024-12-25 11:35] VITALS: BP 119/78
--- NOTE | 2024-12-25 14:07 | PTCARENOTE ---
Chest tube removed today. Patient walking in halls. Dry non-productive cough persists. Dry sterile dressing right anterior chest wall. Right lateral chest surgical incision glued and approximated. In chair, at bedside, call toribio in reach
[2024-12-25 15:05] VITALS: BP 125/59
[2024-12-25] MEDS: CRESTOR 40 MG PO (15:27)
--- NOTE | 2024-12-25 15:29 | W.DCSUMMARY ---
Discharge Summary
Discharge Data
Date of Admission: 12/21/24
Date of Discharge: 12/25/24
-
Pending Results: No
Hospital Course
Primary care physician: Nancy Muñoz
Outpatient subsurface augmentee operator: Elva
Outpatient Pulm: Bryan
Outpatient Hem/Onc: Ankit
Inpatient consultants: none
Procedures:
1. R chest tube insertion by IR 12/21
Primary Diagnosis:
1. pneumothorax s/p recent RLL lobectomy & radical lymph node dissection (12/18)
2. Pulmonary adenocarcinoma status post neoadjuvant chemoimmunotherapy
Secondary Diagnoses:
1. Hypertension
2. Hyperlipidemia
3. Hx LA s/p PCI/stent 2012
4. Tobacco abuse
HPI: Patient is a very pleasant 64-year-old male well-known to our service he was recently discharged after a robotic assisted right lower lobectomy and radical lymph node dissection by Dr. Hastings on 12/18/2024. Patient had a coughing fit at home and
noted a fullness to his right chest. Follow-up chest x-ray was recommended which demonstrated right-sided pneumothorax.
Hospital course: Patient was direct admitted from interventional radiology where he underwent a right sided pigtail chest tube without complication. Patient remained on -20 cm water suction for approximately 24 hours and then his chest x-ray
remained stable. Chest tube was then moved to waterseal, subcu emphysema continues to improve. Clamp trial was done into the morning of 12/25 which demonstrated a tiny right apical pneumothorax. Chest tube was discontinued at the bedside without
incident and follow-up chest x-ray x 2 remained stable. Patient is discharged to home with close follow-up with the transitional care nurse from [facility]. Repeat chest x-ray as an outpatient in approximately 1 week. Continue outpatient
follow-ups as previously scheduled.
Home medication changes: Patient reported no longer taking Flexeril or gabapentin for postsurgical pain, these were discontinued. Continue all other home meds.
Discharge Plan
-
Patient Disposition: Home (Routine Discharge)
Discharge Diagnosis/Procedures: R pneumothorax requiring chest tube (12/21/24)
Condition: Good
Diet: Low Cholesterol and Low Sodium
Activity: No strenuous activity
Driving Restrictions: No driving for 2 weeks
Bathing Restrictions: OK to Shower
Others Tests: repeat 2V CXR in one week (around 01/01)
Referrals:
Cameron Riley DO [Family Provider, Family Practice]
Prescriptions:
New
acetaminophen 325 mg Tablet
650 mg PO Q4HPRN PRN (Reason: MCKINNEY/ mild pain/ temp >/= 100.4F) Qty: 0 0RF
guaifenesin 600 mg Tablet Extended Release 12hr
1,200 mg PO Q12 PRN (Reason: productive cough) Qty: 0 0RF
Continued
rosuvastatin [Crestor] 40 MG tablet
40 mg PO DAILY
famotidine 10 mg Tablet
10 mg PO DAILY
folic acid 1 mg Tablet
1 mg PO DAILY
Keytruda
1 dose IV Q3W
Patient Comments:
timeframe for frequency undetermined at this time.
sennosides [Lidia-ale] 8.6 mg Tablet
8.6 mg PO BIDPRN PRN (Reason: Constipation) Qty: 0 0RF
polyethylene glycol 3350 [Miralax] 17 gram Powder In Packet
17 g PO DAILY PRN (Reason: constipation)
metoprolol succinate 25 mg Tablet Extended Release 24 Hr
25 mg PO DAILY Qty: 0 0RF
aspirin 81 MG tablet,delayed release (DR/EC)
81 mg PO DAILY
lisinopril 2.5 MG tablet
2.5 mg PO DAILY
Discontinued
cyclobenzaprine 10 mg Tablet
5 mg PO Q8HPRN PRN (Reason: muscle spasm) Qty: 14 0RF
gabapentin 100 mg Capsule
100 mg PO TID 8 Days Qty: 24 0RF
Discharge Orders:
Discharge Patient (As Directed); Ordered 12/25/24
Ordered By: Mara Ryan
Care Plan Goals
Care Plan Goals:
Problem: Readiness for enhanced knowledge related to diagnosis and treatment plan
Goal: Understand your diagnosis and treatment plan needs, including medications if applicable.
Instructions: Know your diagnosis, underlying causes and treatment plan options, including medications if applicable. Consult with your health care team to learn about your diagnosis and treatment plan, including medications if applicable.
Discharge Date and Time
Print Language: LUX[place]
--- NOTE | 2024-12-25 16:20 | PTCARENOTE ---
Patient discharged to home. IV and telemetry removed. Discharge teaching given to and patient and spouse, they verbalized understanding. Patient escorted to main lobby
== END 2024-12-25 16:31 | disposition home or self-care (01) | DRG 200 ==
LOC: IVU 08:40
PROVIDERS: Physician Assistant Medical; ADMITTING PHYSICIAN Thoracic Surgery (Cardiothoracic Vascular Surgery); CONSULT PHYSICIAN Radiology Diagnostic Radiology; FAMILY PHYSICIAN Student in an Organized Health Care Education/Training Program
PROC: 0W9930Z Drainage of Right Pleural Cavity with Drainage Device, Percutaneous Approach (ICD-10-PCS; 2024-12-21)
DX: J95.811 Postprocedural pneumothorax (principal); C34.31 Malignant neoplasm of lower lobe, right bronchus or lung; J95.89 Other postprocedural complications and disorders of respiratory system, not elsewhere classified; J98.11 Atelectasis; T81.82XA Emphysema (subcutaneous) resulting from a procedure, initial encounter; I25.10 Atherosclerotic heart disease of native coronary artery without angina pectoris; I10 Essential (primary) hypertension; E78.00 Pure hypercholesterolemia, unspecified; I25.2 Old myocardial infarction; Z95.5 Presence of coronary angioplasty implant and graft; Z92.21 Personal history of antineoplastic chemotherapy; Z90.2 Acquired absence of lung [part of]; Z88.0 Allergy status to penicillin; Z79.899 Other long term (current) drug therapy; Z87.891 Personal history of nicotine dependence
CPT/HCPCS: 32557; 71045; 71046; 80053; 83735; 85027; 85610; 85730; 93005; C1729; C1769

== ENCOUNTER → 2024-12-29 16:11 | Outpatient (REF) | payer MEDICARE, OTHER, SELFPAY | LOC: RAD 16:11 | PROVIDERS: ATTENDING PHYSICIAN Thoracic Surgery (Cardiothoracic Vascular Surgery); FAMILY PHYSICIAN Student in an Organized Health Care Education/Training Program | DX: C80.1 Malignant (primary) neoplasm, unspecified (principal) | CPT/HCPCS: 71046 ==

== ENCOUNTER → 2025-01-11 17:01 | Outpatient (REF) | payer MEDICARE, OTHER, SELFPAY | LOC: RAD 17:01 | PROVIDERS: ATTENDING PHYSICIAN Nurse Practitioner Acute Care; FAMILY PHYSICIAN Student in an Organized Health Care Education/Training Program | DX: Z90.2 Acquired absence of lung [part of] (principal) | CPT/HCPCS: 71046 ==

== ENCOUNTER → 2025-01-15 07:40 | Outpatient (REF) | payer MEDICARE, OTHER, SELFPAY ==
[2025-01-15 08:28] LABS: Hematocrit 40.6 % (39.0-52.0); Hemoglobin 13.6 g/dL (13.0-18.0); Mean Corp Hgb Conc. 33.5 g/dL (33.0-37.0); Mean Corpuscular Volume 90.4 fL (80.0-94.0); Nucleated Red Blood Cells % 0 % (-); Platelet Count 326 10^3/uL (130-400); Red Cell Dist. Width 12.1 % (11.5-14.5)
[2025-01-15 08:55] LABS: ALT (SGPT) 31 U/L (0-50); AST (SGOT) 33 U/L (17-59); Albumin 4.2 g/dl (3.5-5.0); Alkaline Phosphatase 130 U/L (38-126); Blood Urea Nitrogen 8 mg/dl (9-20); Calcium 10.0 mg/dl (8.4-10.2); Carbon Dioxide 30 mmol/L (22-30); Chloride 102 mmol/L (98-107); Glucose 124 mg/dl (70-99); Potassium 5.1 mmol/L (3.5-5.1); Sodium 140 mmol/L (135-145); Total Protein 6.9 g/dl (6.3-8.2); eGFR > 60.00
[2025-01-15 09:24] LABS: TSH 3.66 uIU/ml (0.47-4.68)
[2025-01-17 00:04] LABS: Total T3 (Sendout) 122 ng/dL (80-200)
== END ==
LOC: REG 07:40
PROVIDERS: ATTENDING PHYSICIAN Internal Medicine Hematology & Oncology; FAMILY PHYSICIAN Student in an Organized Health Care Education/Training Program
DX: C34.31 Malignant neoplasm of lower lobe, right bronchus or lung (principal); R53.82 Chronic fatigue, unspecified
CPT/HCPCS: 36415; 80053; 84439; 84443; 84480; 85025

== ENCOUNTER → 2025-01-23 14:12 | Outpatient (REF) | payer MEDICARE, OTHER, SELFPAY | LOC: RAD 14:12 | PROVIDERS: ATTENDING PHYSICIAN Nurse Practitioner Family | DX: R05.3 Chronic cough (principal); Z87.09 Personal history of other diseases of the respiratory system | CPT/HCPCS: 71046 ==

== ENCOUNTER → 2025-01-25 14:10 | Outpatient (REF) | payer MEDICARE, OTHER, SELFPAY | LOC: HWRAD 14:10 | PROVIDERS: ATTENDING PHYSICIAN Thoracic Surgery (Cardiothoracic Vascular Surgery); FAMILY PHYSICIAN Student in an Organized Health Care Education/Training Program | DX: Z90.2 Acquired absence of lung [part of] (principal); R60.9 Edema, unspecified | CPT/HCPCS: 71250 ==

== ENCOUNTER → 2025-02-08 08:17 | Outpatient (REF) | payer MEDICARE, OTHER, SELFPAY ==
[2025-02-08 08:58] LABS: Hematocrit 43.5 % (39.0-52.0); Hemoglobin 14.2 g/dL (13.0-18.0); Mean Corp Hgb Conc. 32.6 g/dL (33.0-37.0); Mean Corpuscular Volume 88.1 fL (80.0-94.0); Nucleated Red Blood Cells % 0 % (-); Platelet Count 301 10^3/uL (130-400); Red Cell Dist. Width 12.8 % (11.5-14.5)
[2025-02-08 09:31] LABS: ALT (SGPT) 40 U/L (0-50); AST (SGOT) 35 U/L (17-59); Albumin 4.9 g/dl (3.5-5.0); Alkaline Phosphatase 123 U/L (38-126); Blood Urea Nitrogen 11 mg/dl (9-20); Calcium 10.2 mg/dl (8.4-10.2); Carbon Dioxide 29 mmol/L (22-30); Chloride 101 mmol/L (98-107); Glucose 125 mg/dl (70-99); Potassium 4.5 mmol/L (3.5-5.1); Sodium 138 mmol/L (135-145); Total Protein 7.8 g/dl (6.3-8.2); eGFR > 60.00
== END ==
LOC: REG 08:17
PROVIDERS: ATTENDING PHYSICIAN Internal Medicine Hematology & Oncology; FAMILY PHYSICIAN Student in an Organized Health Care Education/Training Program
DX: C34.31 Malignant neoplasm of lower lobe, right bronchus or lung (principal); E78.5 Hyperlipidemia, unspecified
CPT/HCPCS: 36415; 80053; 84443; 85025

== ENCOUNTER → 2025-03-01 07:25 | Outpatient (REF) | payer MEDICARE, OTHER, SELFPAY ==
[2025-03-01 08:05] LABS: Hematocrit 41.3 % (39.0-52.0); Hemoglobin 13.5 g/dL (13.0-18.0); Mean Corp Hgb Conc. 32.7 g/dL (33.0-37.0); Mean Corpuscular Volume 88.1 fL (80.0-94.0); Nucleated Red Blood Cells % 0 % (-); Platelet Count 307 10^3/uL (130-400); Red Cell Dist. Width 12.9 % (11.5-14.5)
[2025-03-01 08:40] LABS: ALT (SGPT) 26 U/L (0-50); AST (SGOT) 24 U/L (17-59); Albumin 4.4 g/dl (3.5-5.0); Alkaline Phosphatase 110 U/L (38-126); Blood Urea Nitrogen 12 mg/dl (9-20); Calcium 9.8 mg/dl (8.4-10.2); Carbon Dioxide 26 mmol/L (22-30); Chloride 101 mmol/L (98-107); Glucose 136 mg/dl (70-99); Potassium 4.4 mmol/L (3.5-5.1); Sodium 135 mmol/L (135-145); eGFR > 60.00
[2025-03-01 09:09] LABS: Total Protein 7.5 g/dl (6.3-8.2)
== END ==
LOC: REG 07:25
PROVIDERS: ATTENDING PHYSICIAN Internal Medicine Hematology & Oncology; FAMILY PHYSICIAN Student in an Organized Health Care Education/Training Program
DX: C34.31 Malignant neoplasm of lower lobe, right bronchus or lung (principal); I10 Essential (primary) hypertension
CPT/HCPCS: 36415; 80053; 84443; 85025

== ENCOUNTER → 2025-03-21 14:08 | Outpatient (REF) | payer MEDICARE, OTHER, SELFPAY ==
[2025-03-21 14:41] LABS: Hematocrit 41.1 % (39.0-52.0); Hemoglobin 13.4 g/dL (13.0-18.0); Mean Corp Hgb Conc. 32.6 g/dL (33.0-37.0); Mean Corpuscular Volume 87.4 fL (80.0-94.0); Nucleated Red Blood Cells % 0 % (-); Platelet Count 401 10^3/uL (130-400); Red Cell Dist. Width 13.7 % (11.5-14.5)
[2025-03-21 15:13] LABS: ALT (SGPT) 36 U/L (0-50); AST (SGOT) 41 U/L (17-59); Albumin 4.2 g/dl (3.5-5.0); Alkaline Phosphatase 117 U/L (38-126); Blood Urea Nitrogen 14 mg/dl (9-20); Calcium 9.7 mg/dl (8.4-10.2); Carbon Dioxide 29 mmol/L (22-30); Chloride 96 mmol/L (98-107); Glucose 137 mg/dl (70-99); Potassium 4.5 mmol/L (3.5-5.1); Sodium 134 mmol/L (135-145); Total Protein 7.2 g/dl (6.3-8.2); eGFR > 60.00
[2025-03-22 12:15] LABS: Rheumatoid Agglutinin Less Than 10 IU (<10 IU)
[2025-03-23 14:47] LABS: CRP, Ultra Sensitive 173.95 mg/L (0.30-5.00)
== END ==
LOC: REG 14:08
PROVIDERS: ATTENDING PHYSICIAN Internal Medicine Hematology & Oncology; FAMILY PHYSICIAN Student in an Organized Health Care Education/Training Program
DX: C34.31 Malignant neoplasm of lower lobe, right bronchus or lung (principal); R53.82 Chronic fatigue, unspecified
CPT/HCPCS: 36415; 80053; 85025; 85652; 86141; 86200; 86430

== ENCOUNTER → 2025-03-29 07:35 | Outpatient (REF) | payer MEDICARE, OTHER, SELFPAY ==
[2025-03-29 08:15] LABS: Hematocrit 40.8 % (39.0-52.0); Hemoglobin 13.2 g/dL (13.0-18.0); Mean Corp Hgb Conc. 32.4 g/dL (33.0-37.0); Mean Corpuscular Volume 87.7 fL (80.0-94.0); Nucleated Red Blood Cells % 0 % (-); Platelet Count 567 10^3/uL (130-400); Red Cell Dist. Width 14.4 % (11.5-14.5)
[2025-03-29 08:53] LABS: ALT (SGPT) 100 U/L (0-50); AST (SGOT) 65 U/L (17-59); Albumin 4.2 g/dl (3.5-5.0); Alkaline Phosphatase 101 U/L (38-126); Blood Urea Nitrogen 14 mg/dl (9-20); Calcium 9.6 mg/dl (8.4-10.2); Carbon Dioxide 33 mmol/L (22-30); Chloride 99 mmol/L (98-107); Glucose 98 mg/dl (70-99); Potassium 4.9 mmol/L (3.5-5.1); Sodium 136 mmol/L (135-145); Total Protein 7.0 g/dl (6.3-8.2); eGFR > 60.00
== END ==
LOC: REG 07:35
PROVIDERS: ATTENDING PHYSICIAN Internal Medicine Hematology & Oncology; FAMILY PHYSICIAN Student in an Organized Health Care Education/Training Program
DX: C34.31 Malignant neoplasm of lower lobe, right bronchus or lung (principal); I10 Essential (primary) hypertension
CPT/HCPCS: 36415; 80053; 84443; 85025

== ENCOUNTER → 2025-05-09 06:31 | Outpatient (REF) | payer MEDICARE, OTHER, SELFPAY ==
[2025-05-09 08:36] LABS: Hematocrit 40.9 % (39.0-52.0); Hemoglobin 13.6 g/dL (13.0-18.0); Mean Corp Hgb Conc. 33.3 g/dL (33.0-37.0); Mean Corpuscular Volume 87.8 fL (80.0-94.0); Nucleated Red Blood Cells % 0 % (-); Platelet Count 264 10^3/uL (130-400); Red Cell Dist. Width 16.5 % (11.5-14.5)
[2025-05-09 08:42] LABS: ALT (SGPT) 37 U/L (0-50); AST (SGOT) 30 U/L (17-59); Albumin 4.2 g/dl (3.5-5.0); Alkaline Phosphatase 83 U/L (38-126); Blood Urea Nitrogen 16 mg/dl (9-20); Calcium 9.2 mg/dl (8.4-10.2); Carbon Dioxide 24 mmol/L (22-30); Chloride 100 mmol/L (98-107); Glucose 133 mg/dl (70-99); Potassium 4.3 mmol/L (3.5-5.1); Sodium 135 mmol/L (135-145); Total Protein 6.8 g/dl (6.3-8.2); eGFR > 60.00
== END ==
LOC: REG 06:31
PROVIDERS: ATTENDING PHYSICIAN Internal Medicine Hematology & Oncology
DX: C34.31 Malignant neoplasm of lower lobe, right bronchus or lung (principal); E78.5 Hyperlipidemia, unspecified
CPT/HCPCS: 36415; 80053; 84443; 85025